=== PATIENT | female | born 1940 | race Caucasian/White ===

== ENCOUNTER → 2016-07-11 | Outpatient (CLI) | payer MEDICARE ==
[~2016-07-11] MED LIST: /PANT40TA PO; ACET500T PO; AMOX500T PO; ASPI325T PO; ATEN50TA2 PO; ATENPOW PO; COUM1TAB17 PO; LEVO100T4 PO; LISI5TAB PO; LISIPOW PO; MULTTAB PO; NITR0.4D6 SC; PERCOCET PO; SYNTHROID PO; TYLE325T5 PO; VITAMIN D PO; VYTO10TA41 PO
--- NOTE | 2016-07-11 12:42 | REP ---
Left ankle four views : There is no fracture or dislocation. Mineralization and joint spaces are normal. There are no calcifications or foreign bodies. Impression: Negative left ankle. Calcaneal plantar and Achilles spurs are incidentally noted. Signed by Miles العلي MD 07/11/2016 12:33 P
--- NOTE | 2016-07-11 12:43 | REP ---
Left foot four views: Comparison is 02/21/2010. The previous fracture of the base of the fifth digit metatarsal has healed in satisfactory position alignment. There is no acute fracture on the study today. Mineralization joint spaces are otherwise unremarkable and unchanged. Calcaneal plantar and Achilles spurs are incidentally noted. Impression: Essentially negative left foot except for a calcaneal spurs. Signed by Miles العلي MD 07/11/2016 12:35 P
== END ==
LOC: M WUC 11:45
PROVIDERS: ATTEND Physician Assistant
DX: S93.422A Sprain of deltoid ligament of left ankle, initial encounter (principal); S93.602A Unspecified sprain of left foot, initial encounter; M77.32 Calcaneal spur, left foot; Y92.9 Unspecified place or not applicable; Y93.9 Activity, unspecified; Y99.8 Other external cause status; X58.XXXA Exposure to other specified factors, initial encounter

== ENCOUNTER → 2016-08-29 | Outpatient (REF) | payer MEDICARE, OTHER | LOC: M LAB REF 13:10 | PROVIDERS: ATTEND Family Medicine | DX: N39.0 Urinary tract infection, site not specified (principal) ==

== ENCOUNTER → 2016-11-01 | Outpatient (REF) | payer MEDICARE, OTHER | LOC: M LAB REF 13:09 | PROVIDERS: ATTEND Nurse Practitioner Family | DX: N39.0 Urinary tract infection, site not specified (principal) ==

== ENCOUNTER 2017-10-11 05:49 | Day surgery (SDC) | payer MEDICARE ==
[2017-10-11] MEDS ORDERED: LR 1,000 ML IV ×4 (06:00→10:00)
[2017-10-11] MEDS ORDERED: MIDAZOLAM INJ 2 MG/2 ML VIAL (J2250) As Ordered ×2 (07:09)
[2017-10-11] MEDS ORDERED: fentaNYL 250 MCG/5 ML INJECTION (J3010) As Ordered ×2 (07:09)
[2017-10-11] MEDS ORDERED: ONDANSETRON 4MG/2ML VIAL (J2405) As Ordered ×2 (07:12)
[2017-10-11] MEDS ORDERED: ROCURONIUM BROMIDE 50 MG/5 ML VIAL As Ordered ×2 (07:12)
[2017-10-11] MEDS ORDERED: PROPOFOL 200 MG/20 ML VIAL As Ordered ×2 (07:12)
[2017-10-11] MEDS ORDERED: LIDOCAINE 2% INJ 100 MG/5 ML SDV (FOR ANES.) As Ordered ×2 (07:12)
[2017-10-11] MEDS ORDERED: dexameTHASONE 4 MG/ML 1ML VIAL (J1100) As Ordered ×4 (07:13)
[2017-10-11] MEDS ORDERED: ETOMIDATE INJ 20MG/10ML VIAL As Ordered ×2 (07:42)
[2017-10-11] MEDS ORDERED: GLYCOPYRROLATE INJ 0.2 MG/ML 2 ML VIAL As Ordered ×4 (09:00→09:01)
[2017-10-11] MEDS ORDERED: NEOSTIGMINE 10 MG/10 ML VIAL (J2710) As Ordered ×2 (09:00)
[2017-10-11] MEDS: BUPIVACAINE HCL 0.25% 30 ML VIAL As Ordered ×2 (09:21)
[2017-10-11] MEDS ORDERED: LABETALOL HCL 100 MG/20 ML VIAL As Ordered ×2 (09:32)
[2017-10-11] MEDS: PERCOCET 5MG/325MG TAB PO ×2 (09:58)
[2017-10-11] MEDS ORDERED: ONDANSETRON 4MG/2ML VIAL (J2405) IV ×2 (10:00)
[2017-10-11] MEDS ORDERED: fentaNYL 100 MCG/2 ML INJECTION (J3010) IV ×2 (10:00)
[2017-10-11] MEDS ORDERED: METOCLOPRAMIDE INJ 10MG/2ML VIAL (J2765) IV ×2 (10:00)
== END 2017-10-11 12:00 | disposition home or self-care (01) ==
LOC: M SDC 05:49
DX: K80.10 Calculus of gallbladder with chronic cholecystitis without obstruction (principal); I10 Essential (primary) hypertension; C18.9 Malignant neoplasm of colon, unspecified; K21.9 Gastro-esophageal reflux disease without esophagitis; E03.9 Hypothyroidism, unspecified; E78.00 Pure hypercholesterolemia, unspecified; I48.91 Unspecified atrial fibrillation; I25.2 Old myocardial infarction; R60.0 Localized edema; R29.898 Other symptoms and signs involving the musculoskeletal system; M12.9 Arthropathy, unspecified; F32.9 Major depressive disorder, single episode, unspecified; I25.119 Atherosclerotic heart disease of native coronary artery with unspecified angina pectoris; Z79.899 Other long term (current) drug therapy; Z79.82 Long term (current) use of aspirin; Z78.0 Asymptomatic menopausal state; Z92.21 Personal history of antineoplastic chemotherapy; Z96.641 Presence of right artificial hip joint; Z96.1 Presence of intraocular lens
CPT/HCPCS: 47562

== ENCOUNTER → 2018-01-23 | Outpatient (REF) | payer MEDICARE ==
[2018-01-23 18:09] LABS: LIPASE 233 U/L (73-393)
[2018-01-23 18:09] LABS: AMYLASE 55 U/L (25-115)
== END ==
LOC: M LAB REF 17:25
DX: R10.9 Unspecified abdominal pain (principal)
CPT/HCPCS: 82150

== ENCOUNTER 2018-01-30 05:53 | Day surgery (SDC) | payer MEDICARE ==
[2018-01-30] MEDS ORDERED: ACETAMINOPHEN 325 MG TAB PO (06:00)
[2018-01-30] MEDS: PHENYLEPHRINE 2.5% OPHTH SOL 2ML OD (06:33)
[2018-01-30] MEDS: CYCLOPENTOLATE 2% OPHTH SOLN 2ML BTL OD (06:33)
[2018-01-30] MEDS: LIDOCAINE 3.5 % 1ML OPHTH TOPICAL GEL OU (06:34)
[2018-01-30] MEDS: OFLOXACIN 0.3 % (OCUFLOX) OPTH SOL 5ML OD (06:34)
[2018-01-30] MEDS: TROPICAMIDE 1% OPHTH SOLN 2ML OD (06:34)
[2018-01-30] MEDS ORDERED: PHENYLEPHRINE HCL 10 % OPHTH. SOL 5ML OD (07:00)
[2018-01-30] MEDS ORDERED: BSS with VANC/TOB/EPI for EYE CASES IR (07:00)
[2018-01-30] MEDS ORDERED: MIDAZOLAM INJ 2 MG/2 ML VIAL (J2250) As Ordered (07:05)
[2018-01-30] MEDS ORDERED: fentaNYL 100 MCG/2 ML INJECTION (J3010) As Ordered (07:05)
[2018-01-30] MEDS: MOXIFLOXACIN IN BSS 0.25MG/0.25ML INTRACAMERAL INJ (OR EYE ONLY)(J2280) As Ordered (07:45)
[2018-01-30] MEDS: HEALON DUET PRO(HEALON 10MG/ML 0.55ML & HEALON ENDOCOAT 30MG/ML 0.85ML) As Ordered (07:45)
[2018-01-30] MEDS: TRIAMCINOLONE PRES FR 40 MG/ML 1ML(TRIESENCE)(OR EYE ONLY)(J3300 PER 1MG) As Ordered (07:45)
[2018-01-30] MEDS: LIDOCAINE 1% SDV 5 ML VIAL As Ordered (07:45)
[2018-01-30] MEDS: POVIDONE-IODINE 5% OPHTH PREP SOL 30ML As Ordered (07:45)
[2018-01-30] MEDS: LIDOCAINE 2% W/EPIN INJ 20ML **PRES FREE As Ordered (07:46)
[2018-01-30] MEDS: ACETYLCHOLINE OPHTH SOLN 1% 2ML (MIOCHOL-E) As Ordered (07:46)
[2018-01-30] MEDS ORDERED: TRIMETHOBENZAMIDE 300 MG CAP PO (08:00)
[2018-01-30] MEDS: AcetaZOLAMIDE 500 MG ER CAP PO (08:03)
== END 2018-01-30 08:35 | disposition home or self-care (01) ==
LOC: M SDC 05:53
DX: H25.9 Unspecified age-related cataract (principal); I10 Essential (primary) hypertension; I25.2 Old myocardial infarction; I25.10 Atherosclerotic heart disease of native coronary artery without angina pectoris; Z98.61 Coronary angioplasty status; E78.5 Hyperlipidemia, unspecified; E03.9 Hypothyroidism, unspecified; Z79.899 Other long term (current) drug therapy; Z85.038 Personal history of other malignant neoplasm of large intestine
CPT/HCPCS: 66984

== ENCOUNTER → 2018-09-26 | Outpatient (REF) | payer MEDICARE ==
[~2018-09-26] MED LIST changes: -/PANT40TA PO; +ASPI-255 PO; +LEVO88TA3; +MULTCAP PO; +NITR0.4S14 SL; +PANT40TA3 PO; +PROT1TAB2 PO; +SIMV40TA2 PO; +VITA100067 PO
[2018-09-26 18:55] LABS: AMYLASE 54 U/L (25-115); LIPASE 250 U/L (73-393)
== END ==
LOC: M LAB REF 16:49
PROVIDERS: ATTEND Family Medicine
DX: R10.819 Abdominal tenderness, unspecified site (principal)

== ENCOUNTER → 2019-08-18 | Outpatient (CLI) | payer MEDICARE ==
[~2019-08-18] MED LIST changes: +ACET-907 PO; +ECOT81TA5 PO; +LEVO-86 PO; -LEVO88TA3; +LEVO88TA3 PO; +LISI2.5T2 PO; -SIMV40TA2 PO; +SIMV40TA20 PO; +VITAD1000T PO
== END ==
LOC: M LABSMTC 10:42
PROVIDERS: ATTEND Anesthesiology
DX: Z01.818 Encounter for other preprocedural examination (principal); Z11.59 Encounter for screening for other viral diseases
CPT/HCPCS: C9803; U0003

== ENCOUNTER 2019-08-21 06:42 | Day surgery (SDC) | payer MEDICARE ==
[~2019-08-21] VITALS: Ht 165.1 cm; Wt 84.3 kg
[2019-08-21] MEDS ORDERED: NS 1,000 ML IV ONE (07:00)
[2019-08-21] MEDS ORDERED: propofoL 200 MG/20 ML VIAL As Ordered ONE ×2 (07:07→07:14)
[2019-08-21] MEDS ORDERED: LIDOCAINE 2% 100MG/5ML SDV (FOR ANES.) As Ordered ONE ×2 (07:07→07:14)
--- NOTE | 2019-08-21 07:56 | ROOR ---
Patient Name: Shilpi Farrell Procedure Date: 08/21/2019 7:27 AM Date of : 1940 Age: 79 Room: [facility] Gender: Female Note Status: Finalized Procedure: Colonoscopy Indications: High risk colon cancer surveillance: Personal history of colon cancer, Last colonoscopy: October 2015, Patient had a left hemicolectomy for cancer in 2006 Providers: Pete Whitley MD Referring MD: Woody Colorado MD Requesting Provider: Medicines: Monitored Anesthesia Care Complications: No immediate complications. Procedure: Pre-Anesthesia Assessment: - Prior to the procedure, a History and Physical was performed, and patient medications and allergies were reviewed. The patient is competent. The risks and benefits of the procedure and the sedation options and risks were discussed with the patient. All questions were answered and informed consent was obtained. Patient identification and proposed procedure were verified by the physician, the nurse and the operations dispatcher in the procedure room. Mental Status Examination: alert and oriented. Airway Examination: normal oropharyngeal airway and neck mobility. Prophylactic Antibiotics: The patient does not require prophylactic antibiotics. Prior Anticoagulants: The patient has taken no previous anticoagulant or antiplatelet agents. ASA Grade Assessment: III - A patient with severe systemic disease. After reviewing the risks and benefits, the patient was deemed in satisfactory condition to undergo the procedure. The anesthesia plan was to use monitored anesthesia care (MAC). Immediately prior to administration of medications, the patient was re-assessed for adequacy to receive sedatives. The heart rate, respiratory rate, oxygen saturations, blood pressure, adequacy of pulmonary ventilation, and response to care were monitored throughout the procedure. The physical status of the patient was re-assessed after the procedure. The Colonoscope was introduced through the anus and advanced to the cecum, identified by appendiceal orifice and ileocecal valve. The colonoscopy was performed without difficulty. The patient tolerated the procedure well. The quality of the bowel preparation was excellent. Findings: The perianal and digital rectal examinations were normal. A 3 mm polyp was found in the proximal ascending colon. The polyp was sessile. The polyp was removed with a jumbo cold forceps. Resection and retrieval were complete. The pathology specimen was placed into Bottle Number 1. There was evidence of a prior functional end-to-end colo-colonic anastomosis in the proximal descending colon. This was patent and was characterized by healthy appearing mucosa. Impression: - One 3 mm polyp in the proximal ascending colon, removed with a jumbo cold forceps. Resected and retrieved. - Patent functional end-to-end colo-colonic anastomosis, characterized by healthy appearing mucosa. Recommendation: - Discharge patient to home. - Resume previous diet. - Continue present medications. - Await pathology results. - Repeat colonoscopy in 3 - 5 years for surveillance. Pete Whitley MD Pete Whitley MD 08/21/2019 7:56:05 AM Electronically signed by Pete Whitley MD Number of Addenda: 0 Note Initiated On: 08/21/2019 7:27 AM Estimated Blood Loss: Estimated blood loss: none.
[2019-08-21 08:15] VITALS: BP 134/75
== END 2019-08-21 08:46 | disposition home or self-care (01) ==
LOC: M OPP 06:42
PROVIDERS: ATTEND Surgery
DX: Z12.11 Encounter for screening for malignant neoplasm of colon (principal); Z85.038 Personal history of other malignant neoplasm of large intestine; Z80.0 Family history of malignant neoplasm of digestive organs; D12.2 Benign neoplasm of ascending colon; E03.9 Hypothyroidism, unspecified; I25.2 Old myocardial infarction; Z98.0 Intestinal bypass and anastomosis status; Z79.82 Long term (current) use of aspirin; Z79.899 Other long term (current) drug therapy

== ENCOUNTER → 2019-09-22 | Outpatient (CLI) | payer MEDICARE ==
--- NOTE | 2019-09-22 16:19 | REP ---
ULTRASOUND RIGHT BREAST: Real-time sonographic evaluation of the right breast performed. Patient reports right axillary soreness. There is a morphologically normal appearing lymph node in the right axilla with an echogenic fatty hilum. It measures 1.7 x 0.6 x 1.4 cm. Reportedly there is a palpable lump at 12-o'clock position 10 cm from the nipple. At that location, a small hypoechoic area is seen with distal shadowing. This measures approximately 3 mm. This is probably benign. IMPRESSION: ACR3 probably benign. Right axillary lymph node appears morphologically normal in appearance with a normal short axis dimension. At 12-o'clock position, a small 3 mm hypoechoic focus demonstrates distal acoustic shadowing. This is probably benign. Recommend other 6-month followup ultrasound with mammographic correlation, or ultrasound-guided biopsy.
== END ==
LOC: M WHC 13:11
PROVIDERS: ATTEND Surgery
DX: N63.12 Unspecified lump in the right breast, upper inner quadrant (principal); R59.9 Enlarged lymph nodes, unspecified; Z79.82 Long term (current) use of aspirin; Z79.899 Other long term (current) drug therapy

== ENCOUNTER → 2019-09-24 | Outpatient (CLI) | payer MEDICARE ==
[~2019-09-24] MED LIST changes: +ANAS1TAB2 PO; +D31000TA2 PO; +PANT40TA29 PO; -PANT40TA3 PO; +ULTR50TA8 PO; +VITA100054 PO; -VITAD1000T PO
--- NOTE | 2019-09-24 13:59 | REP ---
ULTRASOUND GUIDANCE FOR TWO RIGHT BREAST BIOPSIES: Real-time sonographic evaluation and ultrasound guidance provided for Dr. Gates for an ultrasound guided biopsy of a nodule at 4 -o'clock position right breast. The nodule is seen on the sonographic images and a biopsy needle is seen within the nodule. Sonographic guidance is also provided biopsy of a hypoechoic nodule at 12 -o'clock position approximately 10 cm from the nipple.
--- NOTE | 2019-09-24 14:04 | REP ---
POST BIOPSY MAMMOGRAM RIGHT BREAST: Postbiopsy mammogram right breast performed following ultrasound-guided biopsy of two separate areas in the right breast. A biopsy clip is seen at the previously identified nodule in the lower inner right breast, originally seen by mammography at [facility] 08/05/2019. Metallic clip is seen at the 12 -o'clock region at the site of a second ultrasound biopsy performed today. There was no mammographic abnormality at that location.
[2019-09-24 17:31] VITALS: BP 158/82
--- NOTE | 2019-10-05 15:29 | ROOPDOC ---
[facility] Report Of Operation Report of Operation DATE OF PROCEDURE: 09/24/19 PREPROCEDURE DIAGNOSES: Right breast mass at 4:00 and 12:00 POSTPROCEDURE DIAGNOSES: Right breast mass at 4:00 and 12:00. PROCEDURE: Ultrasound-guided biopsy of the right breast mass at 4:00 and 12:00 with clip placement at both biopsy sites SURGEON: Jim Cueto ANESTHESIA: Local. ESTIMATED BLOOD LOSS: Approximately 1 mL. COMPLICATIONS: none REMARKS: Post-biopsy mammogram of the right breast was obtained and showed clips in expected position. Shape 4 clip was at the 4:00 mass location. Postprocedural dressing was placed. DESCRIPTION OF PROCEDURE: Lidocaine 1% LOT [id number] Expiration 07/2022 Sodium Bicarbonate 8.4% LOT 06 [id number] EV Expiration 08/2020 4:00 BIOPSY SITE Hydromark clip LOT [id number] Expiration 04/2022 SHAPE 4 Bx device: BARD [id number] x10 cm LOT HU EQ [id number] Expiration 04/2022 12:00 BIOPSY SITE Hydromark clip LOT [id number] Expiration 03/2022 SHAPE 3 Bx device: BARD [id number] x10 cm LOT HU EQ 0691 Expiration 04/2022 Informed consent was obtained. The most common risk and possible complications including bleeding, hematoma, bruising, infection, injury to surrounding structures were explained to the patient and she expressed understanding. Patient was placed on the bed in the supine position. Appropriate time out was done stating patients name, date of , and the procedure to be performed. The right breast was prepped and draped in the usual fashion. The ultrasound was used to confirm the location of the lesions in the right breast at 4:00 4CFN and at 12:00 7CFN. Procedure was started with 4:00 4 cm from the nipple lesion. Plain Lidocaine 1% and 8.4% sodium bicarbonate 10:1 mix was used to anesthetize the skin, the biopsy site and tissues along the anticipated biopsy tract. Small skin incision was made with blade number 11. BARD Marquee 14G cannula with introducer ([id number]) was inserted through the incision and advanced under the ultrasound guidance to position immediately adjacent to the lesion. Next, the introducer was removed and BARD Marquee 14G biopsy device was places in the cannula. Pre- biopsy imaging, and post-biopsy imaging were captured. Five good core biopsies were taken at various levels of the lesion. Specimen was placed in formaldehyde, labeled with appropriate biopsy site and patients name, and sent to pathology for evaluation. Next, the biopsy device was withdrawn and a clip introducer was inserted into the biopsy site via the cannula. The SHAPE 4 Hydromark clip was deployed under sonographic guidance. Post-clip placement image was captured. Manual pressure over the biopsy cavity and tract was held after the clip introducer was withdrawn. No bleeding was noted upon removal of the pressure. Next, our attention was shifted toward 12:00 7 cm from the nipple lesion. Plain Lidocaine 1% and 8.4% sodium bicarbonate 10:1 mix was used to anesthetize the skin, the biopsy site and tissues along the anticipated biopsy tract. Small skin incision was made with blade number 11. BARD Marquee 14G cannula with introducer ([id number]) was inserted through the incision and advanced under the ultrasound guidance to position immediately adjacent to the lesion. Next, the introducer was removed and BARD Marquee 14G biopsy device was places in the cannula. Pre-biopsy imaging, and post-biopsy imaging were captured. Five good core biopsies were taken at various levels of the lesion. Specimen was placed in formaldehyde, labeled with appropriate biopsy site and patients name, and sent to pathology for evaluation. Next, the biopsy device was withdrawn and a clip introducer was inserted into the biopsy site via the cannula. The SHAPE 3 Hydromark clip was deployed under sonographic guidance. Post-clip placement image was captured. Manual pressure over the biopsy cavity and tract was held after the clip intro ducer was withdrawn. No bleeding was noted upon removal of the pressure. Post-biopsy mammogram of the right breast was obtained and showed clips in expected position. Shape 4 clip was at the 4:00 mass location. Postprocedural dressing was placed. Patient tolerated procedure well. Discharge instructions were discussed with the patient and she expressed understanding. JIM CUETO DO Oct 05, 2019 15:29
== END ==
LOC: M WHCPRO 08:59
PROVIDERS: ATTEND Surgery
DX: C50.311 Malignant neoplasm of lower-inner quadrant of right female breast (principal); N63.14 Unspecified lump in the right breast, lower inner quadrant; N63.12 Unspecified lump in the right breast, upper inner quadrant

== ENCOUNTER → 2019-09-29 | Outpatient (CLI) | payer MEDICARE | LOC: M PLALAB 12:55 | PROVIDERS: ATTEND Surgery | DX: Z13.79 Encounter for other screening for genetic and chromosomal anomalies (principal) ==

== ENCOUNTER → 2019-09-30 | Outpatient (REF) | payer MEDICARE ==
[2019-09-30 17:18] LABS: CALCIUM LEVEL 8.6 MG/DL (8.8-10.2); CREATININE FOR GFR 1.19 MG/DL (0.55-1.30); GLOMERULAR FILTRATION RATE 46.5 (>32); POTASSIUM SERUM 4.9 MEQ/L (3.5-5.1)
== END ==
LOC: M PLALAB 13:24
PROVIDERS: ATTEND Surgery
DX: C50.311 Malignant neoplasm of lower-inner quadrant of right female breast (principal)

== ENCOUNTER → 2019-10-22 | Outpatient (REF) | payer MEDICARE ==
[2019-12-06 12:15] LABS: CALCIUM LEVEL 9.1 MG/DL (8.8-10.2); CREATININE FOR GFR 1.19 MG/DL (0.55-1.30); GLOMERULAR FILTRATION RATE 46.5 (>32); POTASSIUM SERUM 4.9 MEQ/L (3.5-5.1)
== END ==
LOC: M WHC 10:32 → M PLALAB 10:32
PROVIDERS: ATTEND Surgery
DX: C50.911 Malignant neoplasm of unspecified site of right female breast (principal)

== ENCOUNTER → 2019-11-04 | Outpatient (CLI) | payer MEDICARE ==
[~2019-11-04] MED LIST changes: +ISOVUE-370 76% 100ML VIAL As Ordered ONE
== END ==
LOC: M RAD 12:05
PROVIDERS: ATTEND Internal Medicine Cardiovascular Disease
DX: I71.00 Dissection of unspecified site of aorta (principal); I25.10 Atherosclerotic heart disease of native coronary artery without angina pectoris; N63.15 Unspecified lump in the right breast, overlapping quadrants; K86.2 Cyst of pancreas; Z95.1 Presence of aortocoronary bypass graft
CPT/HCPCS: 71275; Q9967

== ENCOUNTER → 2019-11-06 | Outpatient (CLI) | payer MEDICARE ==
[~2019-11-06] MED LIST changes: -ISOVUE-370 76% 100ML VIAL As Ordered ONE
== END ==
LOC: M LABSMTC 11:02
PROVIDERS: ATTEND Anesthesiology
DX: Z01.812 Encounter for preprocedural laboratory examination (principal); Z20.828 Contact with and (suspected) exposure to other viral communicable diseases

== ENCOUNTER 2019-11-11 07:24 | Day surgery (SDC) | payer MEDICARE ==
[~2019-11-11] VITALS: Ht 152.4 cm; Wt 89.5 kg
[~2019-11-11 07:24] MED LIST changes: -ANAS1TAB2 PO; -ULTR50TA8 PO
[2019-11-11] MEDS ORDERED: ONDANSETRON 4MG/2ML VIAL As Ordered ONE ×2 (08:09→16:42)
[2019-11-11] MEDS ORDERED: ROCURONIUM BROMIDE 50 MG/5 ML VIAL As Ordered ONE (08:09)
[2019-11-11] MEDS ORDERED: LIDOCAINE 2% 100MG/5ML SDV (FOR ANES.) As Ordered ONE (08:09)
[2019-11-11] MEDS ORDERED: dexameTHASONE 4 MG/ML 1ML VIAL (J1100 PER 1MG) As Ordered ONE (08:09)
[2019-11-11] MEDS ORDERED: ACETAMINOPHEN 1000MG 100ML IV BTL (OFIRMEV) (J0131 PER 10MG) As Ordered ONE (08:09)
[2019-11-11] MEDS ORDERED: propofoL 200 MG/20 ML VIAL As Ordered ONE (08:09)
[2019-11-11] MEDS ORDERED: fentaNYL 250 MCG/5 ML INJECTION (J3010) As Ordered ONE (08:28)
[2019-11-11] MEDS ORDERED: MIDAZOLAM INJ 2MG/2ML VIAL (J2250 PER 1MG) As Ordered ONE (08:29)
[2019-11-11] MEDS ORDERED: fentaNYL 100 MCG/2 ML INJECTION (J3010) As Ordered ONE ×2 (09:00→13:38)
[2019-11-11] MEDS ORDERED: ceFAZolin 2 GM/D5W 50 ML IV BAG (J0690 PER 500MG) As Ordered ONE ×2 (09:18→15:07)
[2019-11-11] MEDS ORDERED: HEPARIN SOD (PORCINE) 5000UNITS/ML 1ML VIAL/SYRINGE As Ordered ONE (09:20)
[2019-11-11] MEDS ORDERED: ceFAZolin SOD 2 GM in IV 1 EA IV ONE (09:45)
[2019-11-11] MEDS ORDERED: NS 1,000 ML IV SCH (09:45)
[2019-11-11] MEDS ORDERED: HEPARIN SOD (PORCINE) 5000UNITS/ML 1ML VIAL/SYRINGE SQ ONE (09:45)
[2019-11-11] MEDS ORDERED: BUPIVACAINE HCL 0.25% 30ML VIAL As Ordered ONE (09:46)
[2019-11-11] MEDS ORDERED: LIDOCAINE 1% SDV 30ML VIAL As Ordered ONE (09:46)
[2019-11-11] MEDS ORDERED: SUCCINYLCHOLINE 100 MG/5 ML SYRINGE (J0330) As Ordered ONE (09:47)
[2019-11-11] MEDS ORDERED: LABETALOL 100MG/20ML VIAL As Ordered ONE (10:51)
[2019-11-11] MEDS ORDERED: ePHEDrine SULFATE 25 MG/5 ML(5MG/ML) SYRINGE As Ordered ONE (11:15)
[2019-11-11] MEDS ORDERED: LACRILUBE (AKWA TEARS) OPHTH OINT 3.5 GM As Ordered ONE (11:42)
[2019-11-11] MEDS ORDERED: ULTR50TA8 PO (16:26)
[2019-11-11] MEDS ORDERED: oxyCODONE 5MG TAB PO PRN ×2 (17:00→22:00)
[2019-11-11] MEDS ORDERED: ONDANSETRON 4MG/2ML VIAL IV PRN ×2 (17:00→22:00)
[2019-11-11] MEDS ORDERED: fentaNYL 100 MCG/2 ML INJECTION (J3010) IV PRN ×2 (17:00→22:00)
[2019-11-11] MEDS ORDERED: HYDROMORPHONE HCL 0.5 MG/ 0.5 ML SYRINGE (J1170 PER 1) IV PRN ×2 (17:00→22:00)
[2019-11-11] MEDS ORDERED: LR 1,000 ML IV SCH ×2 (17:00→22:00)
[2019-11-11] MEDS ORDERED: HYDROMORPHONE HCL 0.5 MG/ 0.5 ML SYRINGE (J1170 PER 1) As Ordered ONE (17:57)
--- NOTE | 2019-11-11 18:16 | HPEPDOC ---
[facility] Medical History & Physical Date of Admission Nov 11, 2019 Date of Service: Nov 11, 2019 Attending Physician: TRACY MANUEL MD History and Physical ATTENDING: Dr. Tracy Manuel Surgeon: Dr. Gates CHIEF COMPLAINT: High blood pressure HISTORY OF PRESENT ILLNESS: 79 y/o F with PMHx CAD s/p CABGx5 in 2003, Colon ca s/p resection 2006, HTN, GERD who presents for lumpectomy and sentinel node dissection for concern of suspicious breast lesion. Pt seen post op mildly hypertensive [id number]. Pt did not take her BP meds today. Pt denies SOB/palpitations. No N/V/abd pain. Overall feels ok. We have been asked to keep pt overnight and monitor given prolonged OR time and cardiac history. PAST MEDICAL HISTORY: As per HPI PAST SURGICAL HISTORY: CABG, Colectomy for colon ca, hip surg, right eye surg SOCIAL HISTORY: Denies tobacco, alcohol use. FAMILY HISTORY: Non contributory ALLERGIES: Please see below. REVIEW OF SYSTEMS: HEENT: Denies sore throat/headache CARDIOVASCULAR: Denies palpitations RESPIRATORY: Denies shortness of breath/cough GASTROINTESTINAL: denies nausea/vomiting GENITOURINARY: Denies dysuria/urinary urgency. MUSCULOSKELETAL: Denies myalgias/arthralgias NEUROLOGICAL: Denies any focal weakness HOME MEDICATIONS: Please see below. PHYSICAL EXAMINATION: Vitals: (see below) General: No acute distress, laying comfortably in bed. HEENT: Moist mucous membranes. Neck: No JVD or lymphadenopathy Cardiac: RRR, No murmurs. Chest wall with JENELLE bandage Pulm: Clear to auscultation b/l. No wheezing, rhonchi Abd: NT/ND + BS Ext: No edema or cyanosis. Distal pulses intact LABORATORY DATA: See below. ASSESSMENT/PLAN: 1. POD #0 s/p lumpectomy x2 with sentinel lymph node biopsy. - management per Dr. Gates 2. HTN - uncontrolled. Restart Lisinopril. hydralazine IV PRN 3. H/o CAD s/p cabg - restart home meds, except ASA until cleared by surg 4. H/o colon ca s/p resection 5. H/o gerd on ppi DVT Prophy: SCDs Pt expected to be hospitalized for <2midnights for the monitoring of the above. Vital Signs Vital Signs Date Time Temp Pulse Resp B/P (MAP) Pulse Ox O2 Delivery O2 Flow Rate FiO2 11/11/19 18:01 20 11/11/19 17:40 97.7 65 165/73 (103) 97 Room Air 11/11/19 16:25 2 Home Medications Scheduled Aspirin (Ecotrin) 81 Mg Tablet.dr, 81 MG PO DAILY Cholecalciferol (Vitamin D3) (Vitamin D3) 25 Mcg Capsule, 25 MCG PO DAILY Levothyroxine Sodium (Levothyroxine Sodium) 88 Mcg Tab, 88 MCG PO ASDIRECTED SUNDAY, SUN, SUNDAY, SUN, SUN Levothyroxine Sodium (Levo-T) 75 Mcg Tablet, 75 MCG PO 2XW SUNDAY AND SUNDAY Lisinopril (Lisinopril) 2.5 Mg Tablet, 2.5 MG PO DAILY Multivitamin (Multivitamins) 1 Cap Cap, 1 CAP PO DAILY Nitroglycerin (Nitroglycerin) 0.4 Mg Sub, 0.4 MG SL ASDIRECTED for chest pain 1st sign of attack; may repeat every 5 mins; if pain persists after 3 in 15 min, medical attention is recommended Pantoprazole Sodium (Pantoprazole Sodium) 40 Mg Tab, 40 MG PO DAILY Simvastatin (Simvastatin) 40 Mg Tab, 40 MG PO DAILY Scheduled PRN Acetaminophen (Tylenol) 325 Mg Tablet, 650 MG PO Q4-6HP PRN for PAIN OR FEVER Tramadol HCl (Ultram) 50 Mg Tablet, 50 MG PO every 6 hours PRN for pain Allergies Coded Allergies: No Known Allergies (Unverified , 01/29/18) A-FIB/CHADSVASC A-FIB History Current/History of A-Fib/PAF?: No TRACY MANUEL MD Nov 11, 2019 18:16
[2019-11-11] MEDS ORDERED: **hydrALAZINE** 10 MG TAB PO PRN (18:30)
[2019-11-11 21:15] VITALS: BP 136/80
--- NOTE | 2019-11-11 21:44 | ROOPDOC ---
[facility] Report Of Operation Report of Operation DATE OF PROCEDURE: 11/11/19 PREPROCEDURE DIAGNOSES: Right breast cancer and right breast suspicious lesion POSTPROCEDURE DIAGNOSES: same PROCEDURE: Right breast lumpectomy x 2 with intraop wire placement x2 and right sentinel lymph node biopsy SURGEON: Jim Baez [employer] ASSEMBLER: ANESTHESIA: general ESTIMATED BLOOD LOSS: Approximately 25 mL. COMPLICATIONS: none REMARKS: clip was identified during dissection of 12:00 lesion and removed from the tissue to avoid misplacement, The clip is present in the 4:00 lumpectomy specimens. Both specimens contain wires DESCRIPTION OF PROCEDURE: INDICATIONS: Ms. Farrell is an 79-year-old woman who was found to have a suspicious right breast mass located at 4:00 on screening mammogram. This was evaluated with US and sonographic correlate was found and biopsy was recommended. On clinical breast exam there was another area of palpable lesion at 12:00. This lesion was evaluated with focal US of this lesion and category BIRADS 3 was assigned to this study and either biopsy or image follow up was recommended. Patient decided that she would like to have biopsy of both lesions. 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 US guided biopsy of the 12:00 lesion came back as fat necrosis. MRI of the breast was done and showed abnormal contrast enhancement at the site of known cancer and some suspicious enhancement at the site of 12:00 biopsy. Malignancy could not be ruled out per radiology report. We have discussed various treatment options and patient decided that she would want to have both lesions removed. She opted for breast conservative surgery with sentinel lymph node biopsy on the right. She was medically cleared for surgery by her primary care doctor and by the cardiology since patient has a hx of open heart surgery. Risks and possible complications of surgical procedure including bleeding, infection and injury to surrounding structures were explained to the patient and she wished to proceed. Consent was signed. My initials were placed on the operative site. Subcutaneous injection of 5000 units of heparin was done in Preop. The injection of radioactive tracer was done in radiology department preoperatively. Lymphoscintigraphy imaging was reviewed in preop. DETAILS: Patient was taken to the operating room and placed on the operating room table. A sign in was called stating patients name, date of and the procedure to be done. Preoperative antibiotics were infused. Smooth induction of general anesthesia was done. Patients hands were extended on arm rests. Care was taken not to over extend the arms. Procedure was started with right breast intraop wire localization of 12:00 lesion and 4:00 lesion. Appropriate time out was done and patients name, date of , and the procedure to be done were confirmed. Right breast was cleaned by me. Intraoperative ultrasound was used to confirm location of the Hydromark clip and 12:00 and at 4:00. Location of the clip was marked on the skin as well at both locations. We started with wire placement at the 12:00 lesion. 21 G Kopans Breast Lesion Localization Needle was used to place 25 cm wire through the clip and the end and the wire was passed a centimeter deep. The images were captured confirming adequate placement of the localizing wire. Next, we proceeded with wire placement at 4:00. 21 G K[place] Breast Lesion Localization Needle was used to place 25 cm wire through the lesion. The clip was identified immediately next to the lesion. The images were captured confirming adequate placement of the localizing wire. Public Welfare Director assisted with the wire placement. Next, patients right breast and axilla were prepped and draped in the usual fashion. Care was taken not to displace the wire. Appropriate time out was done again prior second part of the procedure. Patients name, date of , and the procedure to be done were confirmed. Procedure was started with sentinel lymph node biopsy. Neoprobe was used to locate area of maximum intensity of the signal. Local anesthetic using 1% lidocaine and 0.25 % Marcaine 50/50 mix was injected. An incision was made with scalpel number 15 at the inferior aspect of axillary hair line in the right axilla where the maximum signal was identified. The sharp and blunt dissection was continued through the subcutaneous adipose tissue. Clavipectoral fascia was opened. Neoprobe was used to guide the dissection. First sentinel lymph node was identified and excised. The ex-vivo 10 second count was 5001. Second sentinel lymph node was next to the first node. This was also excised. The ex- vivo 10 second count was 17. The third sentinel lymph node was identified and excised. The ex-vivo 10 second count was 3120. The specimens were labeled with patients name and sent to pathology. No additional lymph nodes with high radioactive signal were identified. The 10 second count of the background was 81. Adequate hemostasis was assured. Additional local anesthetic was injected into surrounding tissues. At this time, the axillary incision was used to access the lesion locates at 12:00. The tissue flaps were raised from the incision site toward the 12:00 Hydromark clip. The previously placed guide wire was carefully pulled into the wound. Hydromark clip was identified with intraoperative US using hockey stick probe. Dissection was carried toward the Hydromark along the wire. Hydromark clip was noted to be visible during tissue dissection and removed to avoid losin g the clip. This was later imaged with the specimen. Black stitch was placed into the specimen at the site where clip was present. Surrounding tissue along the wire and the previously identified clip site was excised. The specimen was carefully removed from the breast keeping its proper orientation and moved to the back table where margins were marked with the surgical inking kit following the standard colors recommendations. Specimen was then placed on the grid and placed in [employer] Specimen Imaging System. The image revealed the wire. The Hydromark clip previously identified in the tissue was placed next to the specimen. The specimen was labeled with patients name and right 12:00 lumpectomy and sent to pathology. Axillary and breast cavities were was irrigated. Breast space was approximated with 2-0 Vicryl. Clavipectoral fascia was closed with 3-0 Vicryl interrupted suture. Dermal layer was closed at the end of the case with 3-0 Monocryl and skin was closed with 4-0 Monocryl. Surgical glue was applied to the incision at the end of the procedure. Next, our attention was turned toward the right 4:00 cancer site. Local anest hetic using 1% lidocaine and 0.25 % Marcaine 50/50 mix was injected at the site of planned periareolar incision. The incision was made with the scalpel. Subcutaneous skin flaps were raised and the guide wire was carefully pulled into the wound. Dissection was carries along the wire until the previously marked on the skin area of target lesion location was encountered. At this point, wider excision of the tissue surrounding the wire was done. The Hydromark clip was identified in the tissue with intraoperative hockey stick ultrasound probe. Palpation of the mass was guiding the dissection. The lumpectomy specimen was carefully removed from the breast keeping its proper orientation and moved to the back table where margins were marked with the surgical inking kit following the standard colors recommendations. Specimen was then placed on the grid and placed in [employer] [facility]imen [facility] System. The image revealed the wire inside the mass and the Hydromark in the specimen. The specimen was labeled with patients name and right 4:00 lumpectomy and sent to pathology. Next, six additional margins were taken: deep, inferior, superior, medial, anterior and lateral. All new margins, defined as margin farthest away from lumpectomy cavity, were marked with black ink. Each margin was sent as a separate specimen with appropriate labeling. Wound was thoroughly irrigated. Adequate hemostasis was assured. Additional local anesthetic was injected into surrounding tissues. Clips were placed to ryan the cavity. space was approximated with 2-0 Vicryl. The dermis was closed with 3-0 Monocryl and skin was closed with 4-0 Monocryl. Surgical glue was placed over the incision. Patient emerged from the anesthesia without any problems. Fluffs were placed over the operative site and patients chest was wrapped snuggly in the JENELLE wrap. Sponge and instrument counts were done and were correct. Patient tolerated procedure well and was taken to recovery unit in stable condition. JIM CUETO DO Nov 11, 2019 21:44
[2019-11-11] MEDS ORDERED: ACETAMINOPHEN 500 MG TAB PO PRN ×2 (22:15)
[2019-11-11] MEDS ORDERED: traMADol 50 MG TAB PO PRN (22:15)
[2019-11-11 23:18] LABS: HEMATOCRIT 33.8 % (36.0-47.0); HEMOGLOBIN 11.4 g/dl (12.0-15.5); MEAN CORPUSCULAR HEMOGLOBIN 33.9 pg (27.0-33.0); MEAN CORPUSCULAR HGB CONC 33.7 g/dl (32.0-36.5); MEAN CORPUSCULAR VOLUME 100.6 fl (80.0-96.0); PLATELET COUNT, AUTOMATED 132 10^3/uL (150-450); RED BLOOD COUNT 3.36 10^6/uL (4.00-5.40); WHITE BLOOD COUNT 7.8 10^3/uL (4.0-10.0)
[2019-11-11 23:29] LABS: CALCIUM LEVEL 8.8 MG/DL (8.8-10.2); CREATININE FOR GFR 1.33 MG/DL (0.55-1.30); GLOMERULAR FILTRATION RATE 40.9 (>32); POTASSIUM SERUM 4.4 MEQ/L (3.5-5.1)
[2019-11-12] MEDS: LISINOPRIL *2.5 MG* TAB PO SCH ×2 (00:38→08:33)
[2019-11-12 02:00] VITALS: BP 131/82
[2019-11-12 06:00] VITALS: BP 136/70
[2019-11-12 07:06] LABS: HEMATOCRIT 31.7 % (36.0-47.0); HEMOGLOBIN 10.5 g/dl (12.0-15.5); MEAN CORPUSCULAR HEMOGLOBIN 33.2 pg (27.0-33.0); MEAN CORPUSCULAR HGB CONC 33.1 g/dl (32.0-36.5); MEAN CORPUSCULAR VOLUME 100.3 fl (80.0-96.0); PLATELET COUNT, AUTOMATED 128 10^3/uL (150-450); RED BLOOD COUNT 3.16 10^6/uL (4.00-5.40); WHITE BLOOD COUNT 8.6 10^3/uL (4.0-10.0)
[2019-11-12 07:17] LABS: CALCIUM LEVEL 8.8 MG/DL (8.8-10.2); CREATININE FOR GFR 1.17 MG/DL (0.55-1.30); GLOMERULAR FILTRATION RATE 47.4 (>32); POTASSIUM SERUM 4.1 MEQ/L (3.5-5.1)
[2019-11-12 08:33] VITALS: BP 152/74
[2019-11-12 10:00] VITALS: BP 135/76
--- NOTE | 2019-11-12 12:03 | DS.PDOC ---
Discharge Summary General Date of Admission 11/11/19 Date of Discharge 11/12/19 Primary Care Physician: PEGGY WATSON M.D. Attending Physician: JIM CUETO DO Discharge Summary PROCEDURES PERFORMED DURING STAY: None. ADMITTING/DISCHARGE DIAGNOSES: 1. POD #1 s/p lumpectomy x2 with sentinel lymph node biopsy. - management per Dr. Cueto 2. HTN - controlled now 3. H/o CAD s/p cabg 4. H/o colon ca s/p resection 5. H/o gerd on ppi COMPLICATIONS/CHIEF COMPLAINT: Post lumpectomy HISTORY OF PRESENT ILLNESS/HOSPITAL COURSE: 79 y/o F with PMHx CAD s/p CABGx5 in 2003, Colon ca s/p resection 2006, HTN, GERD who presents for lumpectomy and sentinel node dissection for concern of suspicious breast lesion. Pt seen post op mildly hypertensive [id number]. Pt did not take her BP meds today. Pt denies SOB/palpitations. No N/V/abd pain. Overall feels ok. We have been asked to keep pt overnight and monitor given prolonged OR time and cardiac history. Pt remained hemodynamically stable. No acute changes overnight. BP stable. Cleared for d/c by Dr. Cueto. Restart ASA when ok with Dr. Cueto. DISCHARGE MEDICATIONS: Please see below. ALLERGIES: Please see below. PHYSICAL EXAMINATION ON DISCHARGE: Vitals: (see below) General: No acute distress, laying comfortably in bed. HEENT: Moist mucous membranes. Neck: No JVD or lymphadenopathy Cardiac: RRR, No murmurs. JENELLE bandage in place. Pulm: Clear to auscultation b/l. No wheezing, rhonchi Abd: NT/ND + BS Ext: No edema or cyanosis. Distal pulses intact. LABORATORY DATA: Please see below. PROGNOSIS: Fair ACTIVITY: As tolerated. DIET: Cardiac diet DISCHARGE PLAN/DISPOSITION: Home DISCHARGE INSTRUCTIONS: 1. F/u with PCP and Cardiology in 1-2 weeks. F/u with Dr. Cueto as instructed; f/u with oncologist/surgeon for pathology results. DISCHARGE CONDITION: Stable. TIME SPENT ON DISCHARGE: 25 minutes. Vital Signs/I&Os Vital Signs Date Time Temp Pulse Resp B/P (MAP) Pulse Ox O2 Delivery O2 Flow Rate FiO2 11/12/19 10:00 98.2 68 17 135/76 (95) 97 Room Air 11/11/19 16:25 2 I&O- Last 24 Hours up to 6 AM 11/12/19 06:00 Intake Total 3140 ml Output Total 575 ml Balance 2565 ml Laboratory Data Labs 24H Laboratory Tests 2 11/11/19 22:45: Nucleated Red Blood Cells % (auto) 0.0, Anion Gap 7L, Glomerular Filtration Rate 40.9, Calcium Level 8.8 11/12/19 06:22: Nucleated Red Blood Cells % (auto) 0.0, Anion Gap 6L, Glomerular Filtration Rate 47.4, Calcium Level 8.8 CBC/BMP Laboratory Tests 11/11/19 22:45 11/12/19 06:22 Discharge Medications Scheduled Aspirin (Ecotrin) 81 Mg Tablet.dr, 81 MG PO DAILY, (Reported) Cholecalciferol (Vitamin D3) (Vitamin D3) 25 Mcg Capsule, 25 MCG PO DAILY, (R eported) Levothyroxine Sodium (Levothyroxine Sodium) 88 Mcg Tab, 88 MCG PO ASDIRECTED, (Reported) SUNDAY, SUN, SUNDAY, SAT, SUN Levothyroxine Sodium (Levo-T) 75 Mcg Tablet, 75 MCG PO 2XW, (Reported) SUNDAY AND SUNDAY Lisinopril (Lisinopril) 2.5 Mg Tablet, 2.5 MG PO DAILY, (Reported) Multivitamin (Multivitamins) 1 Cap Cap, 1 CAP PO DAILY, (Reported) Nitroglycerin (Nitroglycerin) 0.4 Mg Sub, 0.4 MG SL ASDIRECTED for chest pain, (Reported) 1st sign of attack; may repeat every 5 mins; if pain persists after 3 in 15 min, medical attention is recommended Pantoprazole Sodium (Pantoprazole Sodium) 40 Mg Tab, 40 MG PO DAILY, (Reported) Simvastatin (Simvastatin) 40 Mg Tab, 40 MG PO DAILY, (Reported) Scheduled PRN Acetaminophen (Tylenol) 325 Mg Tablet, 650 MG PO Q4-6HP PRN for PAIN OR FEVER, (Reported) Tramadol HCl (Ultram) 50 Mg Tablet, 50 MG PO every 6 hours PRN for pain Allergies Coded Allergies: No Known Allergies (Unverified , 01/29/18) TRACY MANUEL MD Nov 12, 2019 12:03
--- NOTE | 2019-11-12 12:33 | IPNPDOC ---
Subjective General Date Seen: Nov 12, 2019 Subject Chief Complaint/History The patient is a 79-year-old female admitted with a reason for visit of Right Breast Cancer And Suspicious Lesion. s/p R lumpectomy x 2 and R SLNBx POD1 Patient is doing well postop. There were no issues with her heart overnight. Her vitals remained stable. She was able to tolerate food and she voided. She did not require pain medications. Current Medications Current Medications Current Medications Medications (Trade) Dose Ordered Sig/Gaurang Route PRN Reason Start Time Stop Time Status Last Admin Dose Admin Acetaminophen (Tylenol Tab) 500 mg Q6HP PRN PO PAIN 1-3 11/11/19 22:15 Acetaminophen (Tylenol Tab) 1,000 mg Q6HP PRN PO PAIN 4-6 11/11/19 22:15 Fentanyl Citrate (Sublimaze) 25 mcg Q5MP PRN IV PAIN LEVEL 5-10 11/11/19 17:00 11/11/19 18:00 DC Fentanyl Citrate (Sublimaze) 25 mcg Q5MP PRN IV PAIN LEVEL 5-10 11/11/19 22:00 11/11/19 22:59 DC Hydralazine HCl (Apresoline) 10 mg Q6HP PRN PO SBP>160 11/11/19 18:30 Hydromorphone HCl (Dilaudid) 0.2 mg Q5MP PRN IV PAIN LEVEL 4-7 11/11/19 17:00 11/11/19 18:00 DC 11/11/19 18:01 Hydromorphone HCl (Dilaudid) 0.2 mg Q5MP PRN IV PAIN LEVEL 4-7 11/11/19 22:00 11/11/19 22:59 DC Lactated Ringer's 1,000 ml @ 100 mls/hr Q10H IV 11/11/19 17:00 11/11/19 18:00 DC Lactated Ringer's 1,000 ml @ 100 mls/hr Q10H IV 11/11/19 22:00 11/11/19 22:59 DC Lisinopril (Prinivil) 2.5 mg DAILY PO 11/11/19 22:41 11/12/19 08:33 Miscellaneous (Unresolved Clarification Entry) SEE LABEL COMMENTS DAILY XX 11/11/19 09:00 Ondansetron HCl (ZOFRAN INJection) 4 mg Q4HP PRN IV NAUSEA OR VOMITING 11/11/19 17:00 11/11/19 18:00 DC 11/11/19 16:45 Ondansetron HCl (ZOFRAN INJection) 4 mg Q4HP PRN IV NAUSEA OR VOMITING 11/11/19 22:00 11/11/19 22:59 DC Oxycodone HCl (Roxicodone, Oxyir) 5 mg ASDIRECTED PRN PO PAIN LEVEL 1-4 11/11/19 17:00 11/11/19 18:00 DC Oxycodone HCl (Roxicodone, Oxyir) 5 mg ASDIRECTED PRN PO PAIN LEVEL 1-4 11/11/19 22:00 11/11/19 22:59 DC Sodium Chloride 1,000 ml @ 15 mls/hr Q24H IV 11/11/19 09:45 11/11/19 16:56 DC Tramadol HCl (Ultram) 50 mg Q6HP PRN PO PAIN 7-10 11/11/19 22:15 Allergies Coded Allergies: No Known Allergies (Unverified , 01/29/18) Objective Physical Examination Examination GENERAL APPEARANCE:Patient seen, laying in bed, awake, alert, and oriented. Comfortable, in no acute distress. SKIN: Warm and moist. BREAST: Right axillary incision and the right periareolar incision are well approximated. There is no signs of hematoma. There is no excessive ecchymosis LUNGS: Breathing comfortably on room air HEART: Not tachycardic ABDOMEN: Abdomen soft EXTREMITIES: Using right upper extremity without issues Vital Signs Vital Signs Date Time Temp Pulse Resp B/P (MAP) Pulse Ox O2 Delivery O2 Flow Rate FiO2 11/12/19 10:00 98.2 68 17 135/76 (95) 97 Room Air 11/11/19 16:25 2 I&Os I&O- Last 24 Hours up to 6 AM 11/12/19 06:00 Intake Total 3140 ml Output Total 575 ml Balance 2565 ml Laboratory Data Labs 24H Laboratory Tests 2 11/11/19 22:45: Nucleated Red Blood Cells % (auto) 0.0, Anion Gap 7L, Glomerular Filtration Rate 40.9, Calcium Level 8.8 11/12/19 06:22: Nucleated Red Blood Cells % (auto) 0.0, Anion Gap 6L, Glomerular Filtration Rate 47.4, Calcium Level 8.8 CBC/BMP Laboratory Tests 11/11/19 22:45 11/12/19 06:22 Impression 79-year-old female with history of right breast cancer at 4:00 and right breast suspicious lesion at 12:00 status post right breast lumpectomy 2 and right sentinel lymph node biopsy POD1 -Continue incentive spirometer -Keep Yobani wrap till tomorrow -Use Dr. Cueto preprinted postoperative instructions -Prescription for tramadol was sent to pharmacy -Postop schedule for Sunday 9:30 in the morning -stable for discharge, this was communicated with nurse Vera Plan / VTE VTE Prophylaxis Ordered?: Yes JIM CUETO DO Nov 12, 2019 12:33
--- NOTE | 2019-11-19 17:57 | REP ---
NEEDLE LOCALIZATION UNDER SONOGRAPHIC GUIDANCE Sonographic guidance is provided to Dr. Gates who performed ultrasound- guided Kopans wire needle localization and HydroMARK clip placement procedure. MARTINA
--- NOTE | 2019-12-08 10:32 | REP ---
RIGHT BREAST LYMPHOSCINTIGRAPHY The procedure was performed under the direct supervision of Dr. Del Angel. The images were reviewed with Dr. Del Angel. The risks and benefits of the procedure were explained to the patient and informed consent was obtained. Using topical anesthetic and sterile technique, 1.029 mCi of Technetium-99m filtered sulfur colloid was injected subdermally in eight fractionated periareolar injections. Images obtained one hour of injections showed two foci of silvio uptake in the axillary region on the right. IMPRESSION: Right breast lymphoscintigraphy. There are two foci of silvio uptake in the axillary region on the right. MTDD
--- NOTE | 2019-12-23 09:20 | REP ---
SPECIMEN RADIOGRAPHS Three specimen radiographs are performed. Two sites of lumpectomy were localized with ultrasound guidance for Dr. Gates and two separate lumpectomies were apparently performed. FINDINGS: The first image shows a biopsy clip, which was at the 12 o'clock position of the right breast along with a few tiny soft tissue fragments. The second image shows a large soft tissue fragment containing a Kopans wire. The third image shows the nodule that was seen in the inferomedial right breast and this appears to have adequate soft tissue margins circumferentially. The previously noted biopsy clip is again seen at the margin of the nodule. HEIDID
== END 2019-11-12 12:25 | disposition home or self-care (01) ==
LOC: M RADPRO 07:24 → M SDC 07:24 → M MSPAV 21:15 → M RADPRO 11-12 12:25
PROVIDERS: ATTEND Surgery
DX: C50.911 Malignant neoplasm of unspecified site of right female breast (principal); Z17.0 Estrogen receptor positive status [ER+]; I10 Essential (primary) hypertension; I25.10 Atherosclerotic heart disease of native coronary artery without angina pectoris; Z98.61 Coronary angioplasty status; Z85.038 Personal history of other malignant neoplasm of large intestine; Z90.49 Acquired absence of other specified parts of digestive tract; K21.9 Gastro-esophageal reflux disease without esophagitis; Z79.82 Long term (current) use of aspirin; Z79.899 Other long term (current) drug therapy
CPT/HCPCS: 19125; 19126; 36415; 38525; 76942; 78195; 80048; 85027; 86850; 86900; 86901; 88305; 88307; A9541; J0131; J0330; J0690; J1100; J1644; J2250; J2405; J3010

== ENCOUNTER → 2019-12-12 | Outpatient (CLI) | payer MEDICARE ==
[~2019-12-12] MED LIST changes: +ANAS1TAB2 PO; +ULTR50TA8 PO
--- NOTE | 2020-01-15 14:05 | RADONC ---
RADIATION ONCOLOGY CONSULTATION NOTE DATE: 12/12/2019 Chart #[id number] DIAGNOSIS: 1. Right breast cancer. 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 ECOG performance status 0. CONSULTATION NOTE: Ms. 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 HISTORY OF PRESENT ILLNESS: The patient was in her usual state of health until routine mammography revealed a lesion present in the lower inner quadrant of her right breast at the 4 oclock position. On 09/24/2019, the patient underwent core biopsies of her two suspicious areas. The lesion in the 4 oclock position of the right breast revealed a Grade 1 of 3 (low-grade) mucinous adenocarcinoma. The tumor was estrogen receptor strongly positive at 100%, progesterone receptor strongly positive at 100% and HER2 negative. The biopsy of the lesion in the 12 oclock position was benign with focal fatty necrosis only. The patient did well and subsequently underwent a re-excision of both sites. The lesion in the 12 oclock position was negative for malignancy. Unfortunately, the lesion in the 4 oclock position showed a moderately differentiated mucinous adenocarcinoma. The tumor measured 2 cm x 1.5 cm x 1 cm. 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 All margins were negative for malignancy. A total of three sentinel lymph nodes were sampled and were negative for malignancy as well. Lymphovascular invasion was not identified. Therefore, the patient was staged as having a pathologic T1c and pathologic N0 breast adenocarcinoma. The patient has done well since surgery and saw Dr. Saucedo and has received a prescription for an aromatase inhibitor to be initiated following completion of radiation. She is now being referred to me for discussion if postoperative radiation therapy for conservative breast management. PAST MEDICAL HISTORY: The patients past medical history is positive for a history of colon cancer in 2006 which was resected. She had postoperative chemotherapy but no radiation. In addition, the patient had an RI in 2003 for which she underwent cardiac bypass surgery and had stents placed. She has had right cataract surgery in 2007. She had left cataract surgery in 2019. She has a history of arthritis and hypertension as well as hypothyroidism. ALLERGIES: The patient has no known drug allergies. SOCIAL HISTORY: The patient does not smoke cigarettes nor abuse alcohol. FAMILY HISTORY: The patients family history is positive for a sister with colon cancer. It is negative for any other malignancies. REVIEW OF SYSTEMS: The patients review of systems is noncontributory. She denies nausea, vomiting, fevers, chills, night sweats, diplopia, headaches, anxiety, depression, anorexia, weight loss, visual disturbances, chest pain, urinary or bowel difficulties, bone pain or neurological problems. PHYSICAL EXAMINATION: GENERAL: The patient is a well-developed, well-nourished white female in no acute distress. HEENT: Normocephalic, atraumatic. Extraocular movements are intact. LYMPH: There is no palpable cervical, supraclavicular, infraclavicular, axillary or inguinal lymphadenopathy present. LUNGS: Clear to auscultation and percussion. HEART: Regular rate and rhythm. BREASTS: No masses or discharge bilaterally. She has well-healed surgical scars present over her right breast consistent with her history. EXTREMITIES: No clubbing, cyanosis or edema. NEUROLOGIC: Grossly intact. ASSESSMENT: I had a lengthy discussion with this patient and discussed with her in detail the potential benefits as well as possible acute and chronic sequelae of external beam radiation therapy. We discussed logistics of treatment planning, simulation and subsequent fractionated daily radiation treatments. The patient still seems somewhat undecided on radiation and may wish to just do her aromatase inhibitors. The way we left it, I am scheduling her for a simulation sometime next week. If she decides against treatment she can cancel that simulation and this way there is no unnecessary delay in treatment. She is already now four weeks post surgery and the area is well-healed. I discussed with her the hypo-fractionated [place] protocol and I have recommended three weeks of treatment to this breast. Of course, further recommendations can be adjusted when she meets Dr. Roman, her treating physician. She is aware at her age that it may be reasonable to withhold radiation, however she reports that her mother was 101 years old and she does appear somewhat younger than her stated age. Thank you for allowing us to participate in the care of this very pleasant woman. MARTINA
== END ==
LOC: M ONCR 10:08
PROVIDERS: ATTEND Radiology Radiation Oncology
DX: C50.919 Malignant neoplasm of unspecified site of unspecified female breast (principal)

== ENCOUNTER → 2019-12-15 | Outpatient (CLI) | payer MEDICARE ==
--- NOTE | 2019-12-23 12:19 | DEXA ---
AP SPINE L1 - L4 1.034 -1.3 0.5 LT FEMUR TOTAL 0.822 -1.5 0.5 LT NECK 0.861 -1.3 0.9 RT FEMUR TOTAL RT NECK TOTAL BODY TOTAL OTHER COMMENTS: There is low bone density of the spine. There is low bone density of the left hip. FOLLOW-UP: Recommendation for the next bone density exam: 2 years MARTINA
== END ==
LOC: M WHC 09:46
PROVIDERS: ATTEND Specialist
DX: C50.311 Malignant neoplasm of lower-inner quadrant of right female breast (principal); Z78.0 Asymptomatic menopausal state
CPT/HCPCS: 77080; G0463

== ENCOUNTER 2020-01-16 07:49 | Outpatient (RCR) | payer MEDICARE ==
[~2020-01-16 07:49] MED LIST changes: -ANAS1TAB2 PO
== END 2020-01-17 ==
LOC: M ONCR 07:49
PROVIDERS: ATTEND General Practice
DX: C50.311 Malignant neoplasm of lower-inner quadrant of right female breast (principal)

== ENCOUNTER 2020-01-21 07:54 | Outpatient (RCR) | payer MEDICARE ==
[2020-01-21] MEDS ORDERED: ANAS1TAB2 PO (10:55)
== END 2020-02-16 ==
LOC: M ONCR 07:54
PROVIDERS: ATTEND General Practice
DX: C50.311 Malignant neoplasm of lower-inner quadrant of right female breast (principal)

== ENCOUNTER 2020-04-27 12:38 | Inpatient (IN) | payer MEDICARE ==
[~2020-04-27] VITALS: Ht 165.1 cm; Wt 82.1 kg
[~2020-04-27 12:38] MED LIST changes: +ANAS1TAB2 PO
[2020-04-27] MEDS ORDERED: BISACODYL 10 MG SUPP PR PRN (14:00)
[2020-04-27] MEDS ORDERED: BISACODYL 5 MG TAB PO PRN (14:00)
[2020-04-27] MEDS ORDERED: ACETAMINOPHEN TAB 650MG DOSE (2X325MG) PO PRN (14:00)
[2020-04-27 18:05] VITALS: BP 129/79
[2020-04-27] MEDS ORDERED: ASPI81CH33 PO (18:37)
[2020-04-27] MEDS ORDERED: LISI-898 PO (18:37)
[2020-04-27] MEDS ORDERED: ENOX40IN3 SC (18:38)
[2020-04-27] MEDS ORDERED: LIDO1PAD TOP (18:38)
[2020-04-27] MEDS ORDERED: PANT40TA29 PO (18:38)
[2020-04-27] MEDS ORDERED: MULT-90 PO (18:38)
[2020-04-27] MEDS ORDERED: ANAS1TAB2 PO (18:38)
[2020-04-27] MEDS ORDERED: ATOR40TA75 PO (18:38)
[2020-04-27 20:00] VITALS: BP 152/70
[2020-04-27] MEDS: SIMVASTATIN 40 MG TAB PO SCH (20:44)
[2020-04-27] MEDS: REMEDY PHYTOPLEX Z-GUARD PASTE 113GM TUBE (FROM STOREROOM PRODUCT) TOP SCH (20:45)
[2020-04-27] MEDS: SENNA 8.6 MG TAB (SENOKOT) PO SCH (20:45)
[2020-04-27] MEDS: DOCUSATE SODIUM 100MG CAPSULE PO SCH (20:45)
[2020-04-28 05:27] VITALS: BP 149/78
[2020-04-28] MEDS: LEVOTHYROXINE 88MCG TABLET (0.088 MG) PO SCH (05:43)
[2020-04-28 06:48] LABS: BASO % 0.6 % (0.0-1.0); EOS # 0.4 10^3/uL (0.0-0.5); EOS % 5.1 % (0.0-3.0); HEMATOCRIT 36.6 % (36.0-47.0); HEMOGLOBIN 12.1 g/dl (12.0-15.5); LYMPH # 2.2 10^3/uL (1.5-5.0); LYMPH % 30.3 % (24.0-44.0); MEAN CORPUSCULAR HEMOGLOBIN 33.3 pg (27.0-33.0); MEAN CORPUSCULAR HGB CONC 33.1 g/dl (32.0-36.5); MEAN CORPUSCULAR VOLUME 100.8 fl (80.0-96.0); MONO # 0.5 10^3/uL (0.0-0.8); MONO % 6.4 % (0.0-5.0); NEUTROPHILS # 4.1 10^3/uL (1.5-8.5); NEUTROPHILS % 57.3 % (36.0-66.0); PLATELET COUNT, AUTOMATED 135 10^3/uL (150-450); RED BLOOD COUNT 3.63 10^6/uL (4.00-5.40); WHITE BLOOD COUNT 7.2 10^3/uL (4.0-10.0)
[2020-04-28 07:12] LABS: ALBUMIN 2.9 GM/DL (3.2-5.2); ALT/SGPT 14 U/L (12-78); BILIRUBIN,TOTAL 0.4 MG/DL (0.2-1.0); BLOOD UREA NITROGEN 19 MG/DL (7-18); CALCIUM LEVEL 7.8 MG/DL (8.8-10.2); CARBON DIOXIDE LEVEL 21 MEQ/L (21-32); CHLORIDE LEVEL 114 MEQ/L (98-107); CREATININE FOR GFR 0.95 MG/DL (0.55-1.30); GLOMERULAR FILTRATION RATE > 60.0 (>32); GLUCOSE, FASTING 93 MG/DL (70-100); POTASSIUM SERUM 3.7 MEQ/L (3.5-5.1); SODIUM LEVEL 144 MEQ/L (136-145); TOTAL PROTEIN 6.3 GM/DL (6.4-8.2)
[2020-04-28] MEDS: VITAMIN D 1,000 INTERNATIONAL UNITS TABLET PO SCH (08:47)
[2020-04-28] MEDS: LISINOPRIL *2.5 MG* TAB PO SCH (08:47)
[2020-04-28] MEDS: MULTIVITAMINS/MINERALS THERAP 1 TAB PO SCH (08:47)
[2020-04-28] MEDS: DOCUSATE SODIUM 100MG CAPSULE PO SCH ×2 (08:48→20:14)
[2020-04-28] MEDS: REMEDY PHYTOPLEX Z-GUARD PASTE 113GM TUBE (FROM STOREROOM PRODUCT) TOP SCH ×3 (08:48→20:15)
[2020-04-28] MEDS: ASPIRIN 81 MG ENTERIC TAB PO SCH (08:48)
[2020-04-28] MEDS: HEPARIN SOD (PORCINE) 5000UNITS/ML 1ML VIAL/SYRINGE SC SCH ×2 (08:48→20:14)
[2020-04-28] MEDS: OYSTER SHELL CALCIUM 500 MG TAB PO SCH (08:48)
[2020-04-28] MEDS: PANTOPRAZOLE 40MG TAB (PROTONIX) PO SCH (08:48)
--- NOTE | 2020-04-28 12:46 | HPEPDOC ---
[facility] Medical History & Physical Date of Admission Apr 27, 2020 Date of Service: Apr 28, 2020 Attending Physician: Ivette David MD History and Physical MEDICAL CONSULT H&P HISTORY OF PRESENT ILLNESS: Patient is an 79-year-old female with past medical history breast cancer status post radiation, colon cancer status post hemicolectomy in remission, hypertension, hyperlipidemia, CAD status post CABG, GERD, arthritis, anemia, hypothyroidism who was transferred to ARU from [facility] after having acute ischemic stroke of the left MCA, left frontal region. Etiology was suspected to be embolic, suspecting cardioembolic. She is post TPA. The patient had a extensive workup done at [facility] including CARYN (results are pending), CT angiography of the brain, MRI of the brain. She was assessed by physical and occupational therapy along with speech therapy who sherman ggested continued rehabilitation status post stroke. The patient was sent to the ARU at [facility] on 04/27/2020 to continue rehabilitation. Upon evaluation, the patient had no acute complaints. She states she feels as though her right-sided weakness is improving. She had chronic right lower extremity weakness status post CABG in 1999 for which she states is at baseline. Vital signs and labs were unremarkable. Medicine was consulted to continue to follow while she is in the rehabilitation unit. REVIEW OF SYSTEMS: CONSTITUTIONAL: Denies lack of energy, unexplained weight gain or weight loss, loss of appetite, fever, night sweats EYES: Denies eye drainage, eye pain, visual changes, dry/irritated eye EARS, NOSE, MOUTH, THROAT: Denies difficulty hearing, ringing in ears, mouth sores, loose teeth, sore throat, facial numbness or pain NECK: Denies swollen glands CARDIOVASCULAR: Denies irregular heartbeat, racing heart, chest pains, swelling of feet or legs, pain in legs with walking RESPIRATORY: Denies shortness of breath, night sweats, wheezing, sputum production, oxygen at home, coughing up blood, cough lasting > 1 month GASTROINTESTINAL: Denies abdominal pain, constipation, bloody stool, diarrhea, heartburn, nausea, vomiting GENITOURINARY: Denies painful urination, bloody urine, frequent urination, urgency, leaking urine, impotence MUSCULOSKELETAL: Denies joint pain, muscle pain, leg swelling INTEGUMENTARY: Denies rash, itching, new skin lesion, change in existing skin lesion, hair loss or increase, breast changes. NEUROLOGICAL: Denies headaches, dizziness, numbness or tingling PSYCHIATRIC: Denies depression, anxiety, recurrent bad thoughts, mood swings, hallucinations PAST MEDICAL HISTORY: Acute left MCA, left frontal region ischemic stroke possibly cardioembolic CAD status post CABG Hypertension Low-grade mucinous adenocarcinoma right breast, status post lumpectomy and radiation therapy History of colon cancer status post hemicolectomy Hyperlipidemia Arthritis Hypothyroidism PAST SURGICAL HISTORY: Breast surgery Surgery Cholecystectomy Colonoscopy Coronary artery bypass graft Eye surgery Colectomy FAMILY HISTORY: Father: Heart disease Mother: Cancer SOCIAL HISTORY: Agent is . She denies smoking, alcohol or drug use history. She [place] in the local area. She is a full code. ALLERGIES: Please see below. HOME MEDICATIONS: Please see below. PHYSICAL EXAMINATION: VS: Please see below CONSTITUTIONAL: No acute distress, resting comfortably sitting at bedside chair , AAO x 3 EYES: PERRLA, EOM intact HENT, MOUTH: Right side facial droop, moist mucous membranes NECK: SUPPLE, no JVD, no lymphadenopathy, no carotid bruit CV: Regular rate and rhythm, S1S2 normal, no murmurs/rubs/gallops RESPIRATORY: Clear to auscultation bilaterally, no rales/rhonchi/wheezes GI: obese abd, BS positive in 4 quadrants, soft, nontender, nondistended, no rebound or guarding, no organomegaly : Deferred MUSCULOSKELETAL: Normal ROM. No cyanosis, clubbing, swelling, joint deformity, extremity edema INTEGUMENTARY: Intact, no rashes, no lesions, no erythema NEUROLOGIC: Strength 5/5 in all upper ext, in LLE. 4/5 strength in LLE (branch operations specialist main). Right side facial droop, no tongue deviation, reflexes intact in all extremities PSYCHIATRIC: Mood and affect are normal LABORATORY DATA: Please see below IMAGING: No new imaging since admission ASSESSMENT: Patient is an 79-year-old female with past medical history breast cancer status post radiation, colon cancer status post hemicolectomy in remission, hypertension, hyperlipidemia, CAD status post CABG, GERD, arthritis, anemia, hypothyroidism who was transferred to ARU from [facility] after having acute ischemic stroke of the left MCA, left frontal region. DIAGNOSES: Acute left MCA, left frontal region ischemic stroke possibly cardioembolic CAD status post CABG Hypertension Low-grade mucinous adenocarcinoma right breast, status post lumpectomy and radiation therapy History of colon cancer status post hemicolectomy Hyperlipidemia Arthritis Hypothyroidism PLAN: C/w current PT/OT schedule and active medications. Chronic issues appear stable. Goal is home after ARU. DISPOSITION: Thank you kindly for this consult. We will continue to follow closely while here. Vital Signs Vital Signs Date Time Temp Pulse Resp B/P (MAP) Pulse Ox O2 Delivery O2 Flow Rate FiO2 04/28/20 08:47 149/78 04/28/20 05:27 98.5 75 18 95 Room Air Laboratory Data Labs 24H Laboratory Tests 2 04/28/20 06:28: Immature Granulocyte % (Auto) 0.3, Neutrophils (%) (Auto) 57.3, Lymphocytes (%) (Auto) 30.3, Monocytes (%) (Auto) 6.4H, Eosinophils (%) (Auto) 5.1H, Basophils (%) (Auto) 0.6, Neutrophils # (Auto) 4.1, Lymphocytes # (Auto) 2.2, Monocytes # (Auto) 0.5, Eosinophils # (Auto) 0.4, Basophils # (Auto) 0.0, Nucleated Red Blood Cells % (auto) 0.0, Anion Gap 9, Glomerular Filtration Rate > 60.0, Calcium Level 7.8L, Total Bilirubin 0.4, Aspartate Amino Transf (AST/SGOT) 14, Alanine Aminotransferase (ALT/SGPT) 14, Alkaline Phosphatase 48, Total Protein 6.3L, Albumin 2.9L, Albumin/Globulin Ratio 0.9L CBC/BMP Laboratory Tests 04/28/20 06:28 Home Medications Scheduled Anastrozole (Anastrozole) 1 Mg Tablet, 1 MG PO DAILY Aspirin (Aspirin) 81 Mg Tab.chew, 81 MG PO DAILY Cholecalciferol (Vitamin D3) (Vitamin D3) 25 Mcg Capsule, 25 MCG PO DAILY Enoxaparin Sodium (Enoxaparin Sodium) 40 Mg/0.4 Ml Syringe, 40 MG SC DAILY Levothyroxine Sodium (Levothyroxine Sodium) 88 Mcg Tab, 88 MCG PO DAILY Lidocaine (Lidocaine) 5% Adh..patch, 1 PATCH TOP DAILY APPLY TO BACK Lisinopril (Lisinopril) 5 Mg Tablet, 5 MG PO DAILY Multivitamin (Multivitamin) 1 Each Tablet, 1 EACH PO DAILY Nitroglycerin (Nitroglycerin) 0.4 Mg Sub, 0.4 MG SL ASDIRECTED for chest pain 1st sign of attack; may repeat every 5 mins; if pain persists after 3 in 15 min, medical attention is recommended Pantoprazole Sodium (Pantoprazole Sodium) 40 Mg Tablet.dr, 40 MG PO DAILY Simvastatin (Simvastatin) 40 Mg Tab, 40 MG PO DAILY Scheduled PRN Acetaminophen (Tylenol) 325 Mg Tablet, 650 MG PO Q4-6HP PRN for PAIN OR FEVER Allergies Coded Allergies: No Known Allergies (Unverified , 01/29/18) A-FIB/CHADSVASC A-FIB History Current/History of A-Fib/PAF?: No Current PO Anticoag Therapy: No Age/Risk Factor Scoring CHADSVASC: CHADSVASC Response (Comments) Value Age Risk Factor Age >/= 75 years old 2 Gender Risk Factor Female 1 Hx of CHF No 0 Hx of HTN Yes 1 Hx of Stroke/TIA/or VTE Yes 2 Hx of Diabetes No 0 Hx of Vascular Disease No 0 Total 6 Treatment Treatment ordered: Other Other anticoagulant ordered: heparin Ivette David MD Apr 28, 2020 12:46
--- NOTE | 2020-04-28 13:13 | HPEPDOC ---
Professor In Family Studies Note DATE OF ADMISSION: 04-27-20 DATE OF SERVICE: 04-28-20 TIME OF ADMISSION: Please refer to physician's admission order. SOURCE OF ADMISSION INFORMATION: [facility] record and patient CHIEF COMPLAINT: stroke HISTORY OF PRESENT ILLNESS: 79F pmh HLD, HTN, CAD s/p CABG, hypothyroidism, neuropathy, breast cancer s/p radiation, colon cancer s/p hemicolectomy presented to [facility] ED on 04-24-20 with dysarthria. CTH was negative for acute hemorrhage and CTA head and neck showed, Multiple hypoattenuating lesions within bilateral subinsular region, right basal ganglia and right frontal subcortical white matter and left frontal regions which are most consistent with subacute to chronic lacunar infarctsNo occlusion or significant stenosis in the arteries of the neck. Patient received TPA, follow-up MRI showed "Acute lacunar infarcts in the left middle frontal lobe at the level of the centrum semiovale...old lacunar infarcts in the basal ganglia bilaterally." CARYN with bubble study showed a patent foramen ovale with grade 1 right to left shunt. Doppler Venous study 04-27-20 was negative for DVTs and she was evaluated by cardiology who placed a loop recorder for cryptogenic stroke on 04-26-20. She was maintained on aspirin and stating for secondary strok e prevention, found to have mobility and ADLs impairments, placed on a dysphagia diet, and deemed medically appropriate for discharge to ARU on 04-27-20. REVIEW OF SYSTEMS: The following is a completed review of systems and has been reviewed. Review of systems otherwise unremarkable. PAIN: Patient self reports no pain EYES: No recent vision changes EARS, NOSE, & THROAT: +dysphagia CARDIOVASCULAR: denies chest pain or palpitations PULMONARY: Denies shortness of breath GASTROINTESTINAL: Denies constipation/diarrhea GENITOURINARY: denies dysuria MUSCULOSKELETAL: generalized weakenss NEUROLOGICAL:dysphagia and mild aphasia. HEMATOLOGICAL:denies easy bruising SKIN: no rash PSYCHIATRIC: Unremarkable All other review of systems found to be negative. PAST MEDICAL HISTORY: as per HPI PAST SURGICAL HISTORY: As per HPI and cholecystectomy, bilat cataract surgery, retinal separation surgery ALLERGIES: Please see below. MEDICATIONS: Please see below. FAMILY HISTORY: Cardiac, colon cancer SOCIAL HISTORY: No etoh/illicit drugs/smoking DIET: level 2 and nectar PHYSICAL EXAMINATION: VITAL SIGNS: Please see below. GENERAL: Pleasant and cooperative. No acute distress. HEENT: PERRL. Extraocular movements intact. Clear conjunctiva, slight right sided facial droop CARDIOVASCULAR: Regular rate and rhythm. No murmurs, rubs, or gallops LUNGS: Clear to auscultation bilaterally. No wheezes. No rhonchi ABDOMEN: Soft, nontender, nondistended. Positive bowel sounds. Normal active bowel sounds NEUROLOGICAL: Alert and oriented times three. Cranial nerves II through XII grossly intact. Sensation grossly intact -no dysmetria, mild right sided pronator drift, +mild expressive aphasia, visual shah intact -no clonus/ghotra's EXTREMITIES: 5\\5 strength bilateral upper extremities. 5\\5 strength right knee extension/flexion/ ankle DF/PF (hip flexion 4/5 chronic), 5/5 strength in left lower extremity. SKIN: chest wall loop recorder incision LABORATORY DATA: Please see below. 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 Neuro- s/p acute lacunar infarcts in the left middle frontal lobe at the level of the centrum semiovale, c/u ASA and statin for secondary stroke prevention- LOOP recorder in place to check for Afib -+PFO on recent CARYN, f/u with cardiology at [facility]- LE Dopplers negative for DVT p erformed at [facility] 04-27-20 3. CArdiac- hx of CAD with CABG, c/u ASA and lisinopril -HLD- c/u zocor -medicine consulted to assist in overall management 4. Endo- hx of hypothyroidism c/u synthroid 5. GI ppx-protonix 6. DVT ppx - teds and heparin 7. pain- tylenol prn 8. Dispo- tbd POST ADMISSION PHYSICIAN EVALUATION: Medical and functional status: Description of medical status, medical assessment: As above. Rehabilitation diagnosis and current and prior cold morbid medical conditions as above. Risk of complications and plans to mitigate them as above. Description of functional status current status is as above. Prior status as above. Status compared to preadmission: There are no clinically significant differences between the patient's current status and the information described on the preadmission screening document. Treatment plan anticipated: Treatment plan is as described above. Required disciplines including physical therapy, occupational therapy, others as noted above Intensity of services: 3 hours a day, 6 days a week. Special considerations: There are no specific special or safety considerations that would likely preclude immediate implementation of an intensive rehabilitation program or subsequently influence the plan of care. ATTESTATION: Considering all the information above, it is my best judgment that this patient requires intensive rehabilitation therapy as described above and an inpatient hospital environment due to the complexity of nursing, medical, and rehabilitation needs required by the patient. Furthermore, this patient can allison sonably be expected to participate in an benefit from an inpatient rehabilitation stay with an interdisciplinary team approach to the delivery of rehabilitation care under the direction and supervision of rehabilitation physician. PROGNOSIS: Excellent ESTIMATED LENGTH OF STAY:7-10 days. PROJECTED DISCHARGE DESTINATION: Home with family support and any durable medical equipment required to increase functional safety and mobility. TIME SPENT COUNSELING AND COORDINATING INITIAL CARE: Greater than 70 minutes. Vital Signs Vital Sign - Last 24 Hours 04/27/20 04/27/20 04/28/20 04/28/20 18:05 20:00 05:27 08:47 Temp 97.9 97.7 98.5 Pulse 94 76 75 Resp 18 18 18 B/P (MAP) 129/79 (96) 152/70 (97) 149/78 (101) 149/78 Pulse Ox 99 97 95 O2 Delivery Room Air Room Air Room Air Laboratory Data CBC/BMP Laboratory Tests 04/28/20 06:28 Labs 24H Laboratory Tests 2 04/28/20 06:28: Immature Granulocyte % (Auto) 0.3, Neutrophils (%) (Auto) 57.3, Lymphocytes (%) (Auto) 30.3, Monocytes (%) (Auto) 6.4H, Eosinophils (%) (Auto) 5.1H, Basophils (%) (Auto) 0.6, Neutrophils # (Auto) 4.1, Lymphocytes # (Auto) 2.2, Monocytes # (Auto) 0.5, Eosinophils # (Auto) 0.4, Basophils # (Auto) 0.0, Nucleated Red Blood Cells % (auto) 0.0, Anion Gap 9, Glomerular Filtration Rate > 60.0, Calcium Level 7.8L, Total Bilirubin 0.4, Aspartate Amino Transf (AST/SGOT) 14, Alanine Aminotransferase (ALT/SGPT) 14, Alkaline Phosphatase 48, Total Protein 6.3L, Albumin 2.9L, Albumin/Globulin Ratio 0.9L Home Medications Scheduled Anastrozole (Anastrozole) 1 Mg Tablet, 1 MG PO DAILY, (Reported) Aspirin (Aspirin) 81 Mg Tab.chew, 81 MG PO DAILY, (Reported) Cholecalciferol (Vitamin D3) (Vitamin D3) 25 Mcg Capsule, 25 MCG PO DAILY, (Reported) Enoxaparin Sodium (Enoxaparin Sodium) 40 Mg/0.4 Ml Syringe, 40 MG SC DAILY, (Reported) Levothyroxine Sodium (Levothyroxine Sodium) 88 Mcg Tab, 88 MCG PO DAILY, (Reported) Lidocaine (Lidocaine) 5% Adh..patch, 1 PATCH TOP DAILY, (Reported) APPLY TO BACK Lisinopril (Lisinopril) 5 Mg Tablet, 5 MG PO DAILY, (Reported) Multivitamin (Multivitamin) 1 Each Tablet, 1 EACH PO DAILY, (Reported) Nitroglycerin (Nitroglycerin) 0.4 Mg Sub, 0.4 MG SL ASDIRECTED, (Reported) 1st sign of attack; may repeat every 5 mins; if pain persists after 3 in 15 min, medical attention is recommended Pantoprazole Sodium (Pantoprazole Sodium) 40 Mg Tablet.dr, 40 MG PO DAILY, (Reported) Simvastatin (Simvastatin) 40 Mg Tab, 40 MG PO DAILY, (Reported) Scheduled PRN Acetaminophen (Tylenol) 325 Mg Tablet, 650 MG PO Q4-6HP PRN for PAIN OR FEVER, (Reported) Allergies Coded Allergies: No Known Allergies (Unverified , 01/29/18) A-FIB/CHADSVASC A-FIB History Current/History of A-Fib/PAF?: No Current PO Anticoag Therapy: No GAY SHAFFER MD Apr 28, 2020 13:13
[2020-04-28 14:00] VITALS: BP 124/65
[2020-04-28 20:00] VITALS: BP 159/76
[2020-04-28] MEDS: SENNA 8.6 MG TAB (SENOKOT) PO SCH (20:14)
[2020-04-28] MEDS: SIMVASTATIN 40 MG TAB PO SCH (20:14)
[2020-04-29] MEDS: LEVOTHYROXINE 88MCG TABLET (0.088 MG) PO SCH (05:45)
[2020-04-29 06:00] VITALS: BP 155/80
[2020-04-29] MEDS: REMEDY PHYTOPLEX Z-GUARD PASTE 113GM TUBE (FROM STOREROOM PRODUCT) TOP SCH ×3 (09:00→20:06)
[2020-04-29] MEDS: PANTOPRAZOLE 40MG TAB (PROTONIX) PO SCH (09:04)
[2020-04-29] MEDS: DOCUSATE SODIUM 100MG CAPSULE PO SCH ×2 (09:04→20:06)
[2020-04-29] MEDS: VITAMIN D 1,000 INTERNATIONAL UNITS TABLET PO SCH (09:04)
[2020-04-29] MEDS: ASPIRIN 81 MG ENTERIC TAB PO SCH (09:04)
[2020-04-29] MEDS: OYSTER SHELL CALCIUM 500 MG TAB PO SCH (09:04)
[2020-04-29] MEDS: MULTIVITAMINS/MINERALS THERAP 1 TAB PO SCH (09:04)
[2020-04-29] MEDS: LISINOPRIL *2.5 MG* TAB PO SCH (09:05)
[2020-04-29] MEDS: HEPARIN SOD (PORCINE) 5000UNITS/ML 1ML VIAL/SYRINGE SC SCH ×2 (09:05→20:06)
--- NOTE | 2020-04-29 10:05 | IPNPDOC ---
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 She denies worsening swelling in her legs. REVIEW OF SYSTEMS: The following is a completed review of systems and has been reviewed. Review of systems otherwise unremarkable. PAIN: Patient self reports no pain EYES: No recent vision changes EARS, NOSE, & THROAT: +dysphagia CARDIOVASCULAR: denies chest pain or palpitations PULMONARY: Denies shortness of breath GASTROINTESTINAL: Denies constipation/diarrhea GENITOURINARY: denies dysuria MUSCULOSKELETAL: generalized weakness NEUROLOGICAL:dysphagia and mild aphasia. HEMATOLOGICAL:denies easy bruising SKIN: no rash PSYCHIATRIC: Unremarkable All other review of systems found to be negative. PHYSICAL EXAMINATION: VITAL SIGNS: Please see below. GENERAL: Pleasant and cooperative. No acute distress. HEENT: PERRL. Extraocular movements intact. Clear conjunctiva, slight right sided facial droop CARDIOVASCULAR: Regular rate and rhythm. No murmurs, rubs, or gallops LUNGS: Clear to auscultation bilaterally. No wheezes. No rhonchi ABDOMEN: Soft, nontender, nondistended. Positive bowel sounds. Normal active b owel sounds NEUROLOGICAL: Alert and oriented times three. Cranial nerves II through XII grossly intact. Sensation grossly intact -no dysmetria, mild right sided pronator drift, +mild expressive aphasia, visual shah intact -no clonus/ghotra's EXTREMITIES: 5\5 strength bilateral upper extremities. 5\5 strength right knee extension/flexion/ ankle DF/PF (hip flexion 4/5 chronic), 5/5 strength in left lower extremity. 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 Neuro- s/p acute lacunar infarcts in the left middle frontal lobe at the level of the centrum semiovale, c/u ASA and statin for secondary stroke prevention- LOOP recorder in place to check for Afib -+PFO on recent CARYN, f/u with cardiology at [facility]- LE Dopplers negative for DVT performed at [facility] 04-27-20 3. CArdiac- hx of CAD with CABG, c/u ASA and lisinopril -HLD- c/u zocor -medicine consulted to assist in overall management 4. Endo- hx of hypothyroidism c/u synthroid 5. GI ppx-protonix 6. DVT ppx - teds and heparin 7. pain- tylenol prn 8. Dispo- tbd Allergies Coded Allergies: No Known Allergies (Unverified , 01/29/18) Vital Signs Vital Signs Date Time Temp Pulse Resp B/P (MAP) Pulse Ox O2 Delivery O2 Flow Rate FiO2 04/29/20 06:00 98.2 67 18 155/80 (105) 97 Room Air Current Medications Current Medications Current Medications Medications (Trade) Dose Ordered Sig/Gaurang Route PRN Reason Start Time Stop Time Status Last Admin Dose Admin Acetaminophen (Tylenol Tab) 650 mg Q4HP PRN PO fever/MILD PAIN (PS 1-4) 04/27/20 14:00 Aspirin (Ecotrin) 81 mg DAILY PO 04/28/20 09:00 04/29/20 09:04 Bisacodyl (Dulcolax Suppository) 10 mg DAILYPRN PRN RI CONSTIPATION 04/27/20 14:00 Bisacodyl (Dulcolax Tab) 5 mg DAILYPRN PRN PO CONSTIPATION 04/27/20 14:00 Calcium Carbonate (Oscal) 500 mg DAILY PO 04/28/20 09:00 04/29/20 09:04 Docusate Sodium (Colace) 100 mg BID PO 04/27/20 21:00 04/29/20 09:04 Heparin Sodium (Porcine) (Heparin) 5,000 units Q12H SC 04/28/20 09:00 04/29/20 09:05 Home Med (Med Rec Complete!) ASDIRECTED XX 04/27/20 18:45 04/27/20 18:54 DC Levothyroxine Sodium (Synthroid) 88 mcg DAILY@06 PO 04/28/20 06:00 04/29/20 05:45 Lisinopril (Prinivil) 2.5 mg DAILY PO 04/28/20 09:00 04/29/20 09:05 Multivitamins (Theragram-M) 1 tab DAILY PO 04/28/20 09:00 04/29/20 09:04 Pantoprazole Sodium (Protonix) 40 mg DAILY PO 04/28/20 09:00 04/29/20 09:04 Senna (Senokot) 1 tab QHS PO 04/27/20 21:00 04/28/20 20:14 Simvastatin (Zocor) 40 mg QHS PO 04/27/20 21:00 04/28/20 20:14 Vitamin D (Vitamin D) 1,000 units DAILY PO 04/28/20 09:00 04/29/20 09:04 GAY SHAFFER MD Apr 29, 2020 10:05
[2020-04-29 11:07] VITALS: BP 118/65
[2020-04-29] MEDS: METOPROLOL TART 25 MG TABLET PO SCH ×2 (11:07→20:06)
[2020-04-29 14:00] VITALS: BP 115/56
[2020-04-29 20:00] VITALS: BP 137/65
[2020-04-29] MEDS: SENNA 8.6 MG TAB (SENOKOT) PO SCH (20:06)
[2020-04-29] MEDS: SIMVASTATIN 40 MG TAB PO SCH (20:06)
[2020-04-30] MEDS: LEVOTHYROXINE 88MCG TABLET (0.088 MG) PO SCH (05:27)
[2020-04-30 06:00] VITALS: BP 155/81
[2020-04-30 06:42] LABS: BASO % 0.7 % (0.0-1.0); EOS # 0.4 10^3/uL (0.0-0.5); EOS % 6.3 % (0.0-3.0); LYMPH # 2.5 10^3/uL (1.5-5.0); LYMPH % 43.9 % (24.0-44.0); MEAN CORPUSCULAR HEMOGLOBIN 32.1 pg (27.0-33.0); MEAN CORPUSCULAR HGB CONC 31.4 g/dl (32.0-36.5); MONO # 0.6 10^3/uL (0.0-0.8); MONO % 9.5 % (0.0-5.0); NEUTROPHILS # 2.3 10^3/uL (1.5-8.5); NEUTROPHILS % 39.4 % (36.0-66.0); PLATELET COUNT, AUTOMATED 134 10^3/uL (150-450); RED BLOOD COUNT 3.43 10^6/uL (4.00-5.40); WHITE BLOOD COUNT 5.8 10^3/uL (4.0-10.0)
[2020-04-30 07:18] LABS: CALCIUM LEVEL 7.9 MG/DL (8.8-10.2); CREATININE FOR GFR 1.03 MG/DL (0.55-1.30); GLOMERULAR FILTRATION RATE 54.9 (>32); POTASSIUM SERUM 4.1 MEQ/L (3.5-5.1)
[2020-04-30] MEDS: PANTOPRAZOLE 40MG TAB (PROTONIX) PO SCH (08:29)
[2020-04-30] MEDS: OYSTER SHELL CALCIUM 500 MG TAB PO SCH (08:29)
[2020-04-30] MEDS: ASPIRIN 81 MG ENTERIC TAB PO SCH (08:30)
[2020-04-30] MEDS: MULTIVITAMINS/MINERALS THERAP 1 TAB PO SCH (08:30)
[2020-04-30] MEDS: HEPARIN SOD (PORCINE) 5000UNITS/ML 1ML VIAL/SYRINGE SC SCH ×2 (08:30→20:22)
[2020-04-30] MEDS: LISINOPRIL *2.5 MG* TAB PO SCH (08:30)
[2020-04-30] MEDS: METOPROLOL TART 25 MG TABLET PO SCH ×2 (08:30→20:21)
[2020-04-30] MEDS: VITAMIN D 1,000 INTERNATIONAL UNITS TABLET PO SCH (08:31)
[2020-04-30] MEDS: REMEDY PHYTOPLEX Z-GUARD PASTE 113GM TUBE (FROM STOREROOM PRODUCT) TOP SCH ×3 (08:31→20:22)
[2020-04-30] MEDS: DOCUSATE SODIUM 100MG CAPSULE PO SCH ×2 (08:31→20:23)
[2020-04-30 14:00] VITALS: BP 143/70
[2020-04-30] MEDS: CEPHALEXIN 500 MG CAP PO SCH ×2 (17:03→20:22)
[2020-04-30] MEDS: LACTOBACILLUS ACIDOPHILUS CAP (BACID) PO SCH ×2 (17:03→20:23)
--- NOTE | 2020-04-30 19:54 | REPVR ---
PROCEDURE INFORMATION: Exam: US Duplex Left Upper Extremity Veins, Limited Exam date and time: 04/30/2020 6:09 PM Age: 79 years old Clinical indication: Pain; Arm, upper; Left; Additional info: Antecubital fossa swelling TECHNIQUE: Imaging protocol: Real-time Duplex ultrasound of the Left Upper Extremity with 2-D locke scale, color Doppler flow and spectral waveform analysis with image documentation. Limited exam focused on the left upper extremity veins. COMPARISON: No relevant prior studies available. FINDINGS: Left deep veins: Unremarkable. Axillary and brachial veins are patent throughout without thrombus. Normal Doppler waveforms. Normal compressibility and/or augmentation response. Visualized internal jugular and subclavian veins are patent. Left superficial veins: There is occlusion of the left cephalic vein with thrombus from the level of the mid arm to the antecubital fossa. This is probably a combination of acute and chronic thrombus. There are echogenic fibrous strands identified along with acute hypoechoic thrombus. There is venous return of the basilic vein. IMPRESSION: There is both acute and chronic occluding thrombus within the left cephalic vein from the mid arm to the antecubital fossa. Linear echogenic areas are probably fibrotic strands mixed with acute hypoechoic occluding superficial thrombosis. Electronically signed by: Ander Rojo On 04/30/2020 19:54:30 PM
[2020-04-30 20:00] VITALS: BP 160/77
[2020-04-30] MEDS: SIMVASTATIN 40 MG TAB PO SCH (20:20)
[2020-04-30] MEDS: SENNA 8.6 MG TAB (SENOKOT) PO SCH (20:23)
[2020-05-01 05:11] VITALS: BP 170/68
[2020-05-01] MEDS: LEVOTHYROXINE 88MCG TABLET (0.088 MG) PO SCH (05:27)
[2020-05-01] MEDS: LISINOPRIL *2.5 MG* TAB PO SCH (05:28)
[2020-05-01] MEDS ORDERED: PILL CUTTER 1 EACH XX PRN (05:30)
[2020-05-01] MEDS: DOCUSATE SODIUM 100MG CAPSULE PO SCH ×2 (08:02→20:49)
[2020-05-01 08:45] VITALS: BP 137/67
[2020-05-01] MEDS: LACTOBACILLUS ACIDOPHILUS CAP (BACID) PO SCH ×4 (08:46→20:50)
[2020-05-01] MEDS: VITAMIN D 1,000 INTERNATIONAL UNITS TABLET PO SCH (08:46)
[2020-05-01] MEDS: PANTOPRAZOLE 40MG TAB (PROTONIX) PO SCH (08:46)
[2020-05-01] MEDS: CEPHALEXIN 500 MG CAP PO SCH ×4 (08:46→20:50)
[2020-05-01] MEDS: ASPIRIN 81 MG ENTERIC TAB PO SCH (08:46)
[2020-05-01] MEDS: MULTIVITAMINS/MINERALS THERAP 1 TAB PO SCH (08:46)
[2020-05-01] MEDS: METOPROLOL TART 25 MG TABLET PO SCH ×2 (08:46→20:51)
[2020-05-01] MEDS: REMEDY PHYTOPLEX Z-GUARD PASTE 113GM TUBE (FROM STOREROOM PRODUCT) TOP SCH ×3 (08:47→20:51)
[2020-05-01] MEDS: APIXABAN 5 MG TAB (ELIQUIS) PO SCH ×2 (08:47→20:50)
[2020-05-01] MEDS: OYSTER SHELL CALCIUM 500 MG TAB PO SCH (08:47)
--- NOTE | 2020-05-01 12:09 | IPNPDOC ---
Date Seen The patient was seen on 05/01/20. Progress Note SUBJECTIVE: Started on eliquis BID due to recent stroke, ? cardioembolic cause and severe pain and swelling. Warm compresses helping. No shortness of breath, n/v/d, chest pain. OBJECTIVE: PHYSICAL EXAMINATION: VS: Please see below CONSTITUTIONAL: No acute distress, resting comfortably sitting at bedside chair , AAO x 3 EYES: PERRLA, EOM intact HENT, MOUTH: Right side facial droop, moist mucous membranes NECK: SUPPLE, no JVD, no lymphadenopathy, no carotid bruit CV: Regular rate and rhythm, S1S2 normal, no murmurs/rubs/gallops RESPIRATORY: Clear to auscultation bilaterally, no rales/rhonchi/wheezes GI: obese abd, BS positive in 4 quadrants, soft, nontender, nondistended, no rebound or guarding, no organomegaly : Deferred MUSCULOSKELETAL: Left upper ext swollen, tender in AC area. Normal ROM. No cyanosis, clubbing, swelling, joint deformity, extremity edema INTEGUMENTARY: Intact, no rashes, no lesions, no erythema NEUROLOGIC: Strength 5/5 in all upper ext, in LLE. 4/5 strength in LLE (chronic). Right side facial droop, no tongue deviation, reflexes intact in all extremities PSYCHIATRIC: Mood and affect are normal LABORATORY DATA: Please see below IMAGING: US LUE: There is both acute and chronic occluding thrombus within the left cephalic vein from the mid arm to the antecubital fossa. Linear echogenic areas are probably fibrotic strands mixed with acute hypoechoic occluding superficial thro mbosis. ASSESSMENT: Patient is an 79-year-old female with past medical history breast cancer status post radiation, colon cancer status post hemicolectomy in remission, hypertension, hyperlipidemia, CAD status post CABG, GERD, arthritis, anemia, hypothyroidism who was transferred to ARU from [facility] after having acute ischemic stroke of the left MCA, left frontal region. DIAGNOSES: Left acute and chronic occluding left cephalic vein thrombus Acute left MCA, left frontal region ischemic stroke possibly cardioembolic CAD status post CABG Hypertension Low-grade mucinous adenocarcinoma right breast, status post lumpectomy and radiation therapy History of colon cancer status post hemicolectomy Hyperlipidemia Arthritis Hypothyroidism PLAN: Due to recent events with stroke, possible cryptogenic/thrombotic cause not being able to be identified, increased severe pain and hx of cancer being hypercoaguable, decision was made to treat with anticoagulation. Started on eliquis 10 mg PO BID x 7 days. Duration of treatment is not clearly stated; however, it is recommend to re-US in several weeks to see if resolution of clot. Unlike guidelines to DVT's, superficial thromboses guidelines go off of clinical picture and risk factors for duration of treatment with AC. Will discuss with Dr. Hunter's after the weekend. C/w current PT/OT schedule and active medications. Other chronic issues appear stable. Goal is home after ARU. VS, I&O, 24H, Fishbone Vital Signs/I&O Vital Signs Date Time Temp Pulse Resp B/P (MAP) Pulse Ox O2 Delivery O2 Flow Rate FiO2 05/01/20 08:46 66 137/67 05/01/20 05:11 97.3 17 98 Room Air I&O- Last 24 Hours up to 6 AM 05/01/20 06:00 Intake Total 1000 ml Balance 1000 ml Current Medications Current Medications Medications (Trade) Dose Ordered Sig/Gaurang Route PRN Reason Start Time Stop Time Status Last Admin Dose Admin Acetaminophen (Tylenol Tab) 650 mg Q4HP PRN PO fever/MILD PAIN (PS 1-4) 04/27/20 14:00 Apixaban (Eliquis) 5 mg BID PO 05/08/20 09:00 Apixaban (Eliquis) 10 mg BID PO 05/01/20 09:00 05/07/20 21:01 05/01/20 08:47 Aspirin (Ecotrin) 81 mg DAILY PO 04/28/20 09:00 05/01/20 08:46 Bisacodyl (Dulcolax Suppository) 10 mg DAILYPRN PRN ID CONSTIPATION 04/27/20 14:00 Bisacodyl (Dulcolax Tab) 5 mg DAILYPRN PRN PO CONSTIPATION 04/27/20 14:00 Calcium Carbonate (Oscal) 500 mg DAILY PO 04/28/20 09:00 05/01/20 08:47 Cephalexin Monohydrate (Keflex) 500 mg QID PO 04/30/20 17:00 05/05/20 13:01 05/01/20 08:46 Docusate Sodium (Colace) 100 mg BID PO 04/27/20 21:00 04/30/20 08:31 Heparin Sodium (Porcine) (Heparin) 5,000 units Q12H SC 04/28/20 09:00 05/01/20 07:45 DC 04/30/20 20:22 Home Med (Med Rec Complete!) ASDIRECTED XX 04/27/20 18:45 04/27/20 18:54 DC Lactobacillus Acidophilus (Bacid) 1 ea WMHS PO 04/30/20 18:00 05/01/20 08:46 Levothyroxine Sodium (Synthroid) 88 mcg DAILY@06 PO 04/28/20 06:00 05/01/20 05:27 Lisinopril (Prinivil) 2.5 mg DAILY PO 04/28/20 09:00 04/30/20 10:31 DC 04/30/20 08:30 Lisinopril (Prinivil) 5 mg DAILY PO 05/01/20 09:00 05/01/20 05:28 Metoprolol Tartrate (Lopressor) 25 mg BID PO 04/29/20 10:15 05/01/20 08:46 Multivitamins (Theragram-M) 1 tab DAILY PO 04/28/20 09:00 05/01/20 08:46 Pantoprazole Sodium (Protonix) 40 mg DAILY PO 04/28/20 09:00 05/01/20 08:46 Senna (Senokot) 1 tab QHS PO 04/27/20 21:00 04/29/20 20:06 Simvastatin (Zocor) 40 mg QHS PO 04/27/20 21:00 04/30/20 20:20 Vitamin D (Vitamin D) 1,000 units DAILY PO 04/28/20 09:00 05/01/20 08:46 Allergies Coded Allergies: No Known Allergies (Unverified , 01/29/18) Ivette David MD May 01, 2020 12:09
[2020-05-01 14:00] VITALS: BP 140/81
[2020-05-01 20:00] VITALS: BP 163/74
[2020-05-01] MEDS: SENNA 8.6 MG TAB (SENOKOT) PO SCH (20:50)
[2020-05-01] MEDS: SIMVASTATIN 40 MG TAB PO SCH (20:50)
[2020-05-02 05:16] VITALS: BP 164/72
[2020-05-02] MEDS: LEVOTHYROXINE 88MCG TABLET (0.088 MG) PO SCH (05:30)
[2020-05-02] MEDS: LISINOPRIL *2.5 MG* TAB PO SCH (05:30)
[2020-05-02 08:25] VITALS: BP 116/59
[2020-05-02] MEDS: MULTIVITAMINS/MINERALS THERAP 1 TAB PO SCH (08:26)
[2020-05-02] MEDS: OYSTER SHELL CALCIUM 500 MG TAB PO SCH (08:26)
[2020-05-02] MEDS: PANTOPRAZOLE 40MG TAB (PROTONIX) PO SCH (08:26)
[2020-05-02] MEDS: VITAMIN D 1,000 INTERNATIONAL UNITS TABLET PO SCH (08:26)
[2020-05-02] MEDS: APIXABAN 5 MG TAB (ELIQUIS) PO SCH ×2 (08:26→20:25)
[2020-05-02] MEDS: CEPHALEXIN 500 MG CAP PO SCH ×4 (08:26→20:24)
[2020-05-02] MEDS: METOPROLOL TART 25 MG TABLET PO SCH ×2 (08:27→20:26)
[2020-05-02] MEDS: REMEDY PHYTOPLEX Z-GUARD PASTE 113GM TUBE (FROM STOREROOM PRODUCT) TOP SCH ×3 (08:27→20:25)
[2020-05-02] MEDS: DOCUSATE SODIUM 100MG CAPSULE PO SCH ×2 (08:27→20:25)
[2020-05-02] MEDS: ASPIRIN 81 MG ENTERIC TAB PO SCH (08:27)
[2020-05-02] MEDS: LACTOBACILLUS ACIDOPHILUS CAP (BACID) PO SCH ×4 (08:27→20:24)
[2020-05-02 14:00] VITALS: BP 129/68
[2020-05-02 20:00] VITALS: BP 145/88
[2020-05-02] MEDS: SIMVASTATIN 40 MG TAB PO SCH (20:25)
[2020-05-02] MEDS: SENNA 8.6 MG TAB (SENOKOT) PO SCH (20:25)
[2020-05-03] MEDS: LEVOTHYROXINE 88MCG TABLET (0.088 MG) PO SCH (06:00)
[2020-05-03 06:04] VITALS: BP 146/74
[2020-05-03 06:35] LABS: BASO # 0.1 10^3/uL (0.0-0.2); EOS # 0.3 10^3/uL (0.0-0.5); EOS % 5.2 % (0.0-3.0); HEMATOCRIT 35.6 % (36.0-47.0); HEMOGLOBIN 11.5 g/dl (12.0-15.5); LYMPH # 2.6 10^3/uL (1.5-5.0); LYMPH % 42.5 % (24.0-44.0); MEAN CORPUSCULAR HEMOGLOBIN 33.1 pg (27.0-33.0); MEAN CORPUSCULAR HGB CONC 32.3 g/dl (32.0-36.5); MEAN CORPUSCULAR VOLUME 102.6 fl (80.0-96.0); MONO # 0.7 10^3/uL (0.0-0.8); MONO % 10.7 % (2.0-8.0); NEUTROPHILS # 2.5 10^3/uL (1.5-8.5); NEUTROPHILS % 40.3 % (36.0-66.0); PLATELET COUNT, AUTOMATED 146 10^3/uL (150-450); RED BLOOD COUNT 3.47 10^6/uL (4.00-5.40); WHITE BLOOD COUNT 6.2 10^3/uL (4.0-10.0)
[2020-05-03 07:02] LABS: CALCIUM LEVEL 8.8 MG/DL (8.8-10.2); CREATININE FOR GFR 1.21 MG/DL (0.55-1.30); GLOMERULAR FILTRATION RATE 45.6 (>32); POTASSIUM SERUM 4.4 MEQ/L (3.5-5.1)
[2020-05-03] MEDS: LACTOBACILLUS ACIDOPHILUS CAP (BACID) PO SCH ×4 (10:33→20:12)
[2020-05-03] MEDS: CEPHALEXIN 500 MG CAP PO SCH ×4 (10:33→20:11)
[2020-05-03] MEDS: VITAMIN D 1,000 INTERNATIONAL UNITS TABLET PO SCH (10:33)
[2020-05-03] MEDS: ASPIRIN 81 MG ENTERIC TAB PO SCH (10:33)
[2020-05-03] MEDS: LISINOPRIL *2.5 MG* TAB PO SCH (10:33)
[2020-05-03] MEDS: PANTOPRAZOLE 40MG TAB (PROTONIX) PO SCH (10:33)
[2020-05-03] MEDS: DOCUSATE SODIUM 100MG CAPSULE PO SCH ×2 (10:34→20:12)
[2020-05-03] MEDS: OYSTER SHELL CALCIUM 500 MG TAB PO SCH (10:34)
[2020-05-03] MEDS: METOPROLOL TART 25 MG TABLET PO SCH ×2 (10:34→20:12)
[2020-05-03] MEDS: MULTIVITAMINS/MINERALS THERAP 1 TAB PO SCH (10:34)
[2020-05-03] MEDS: REMEDY PHYTOPLEX Z-GUARD PASTE 113GM TUBE (FROM STOREROOM PRODUCT) TOP SCH ×3 (10:38→20:12)
[2020-05-03 14:00] VITALS: BP 137/79
[2020-05-03] MEDS: SIMVASTATIN 40 MG TAB PO SCH (20:12)
[2020-05-03] MEDS: SENNA 8.6 MG TAB (SENOKOT) PO SCH (20:12)
[2020-05-03 20:20] VITALS: BP 133/77
[2020-05-04] MEDS: LEVOTHYROXINE 88MCG TABLET (0.088 MG) PO SCH (05:42)
[2020-05-04 06:03] VITALS: BP 146/68
[2020-05-04] MEDS: MULTIVITAMINS/MINERALS THERAP 1 TAB PO SCH (08:14)
[2020-05-04] MEDS: DOCUSATE SODIUM 100MG CAPSULE PO SCH ×2 (08:14→08:20)
[2020-05-04] MEDS: PANTOPRAZOLE 40MG TAB (PROTONIX) PO SCH (08:14)
[2020-05-04] MEDS: OYSTER SHELL CALCIUM 500 MG TAB PO SCH (08:14)
[2020-05-04] MEDS: CEPHALEXIN 500 MG CAP PO SCH ×2 (08:14→12:02)
[2020-05-04] MEDS: VITAMIN D 1,000 INTERNATIONAL UNITS TABLET PO SCH (08:14)
[2020-05-04] MEDS: LACTOBACILLUS ACIDOPHILUS CAP (BACID) PO SCH ×2 (08:14→11:43)
[2020-05-04] MEDS: ASPIRIN 81 MG ENTERIC TAB PO SCH (08:14)
[2020-05-04 08:15] VITALS: BP 146/68
[2020-05-04] MEDS: METOPROLOL TART 25 MG TABLET PO SCH (08:15)
[2020-05-04] MEDS: REMEDY PHYTOPLEX Z-GUARD PASTE 113GM TUBE (FROM STOREROOM PRODUCT) TOP SCH (08:15)
[2020-05-04] MEDS ORDERED: lisinopriL 5 MG TAB PO SCH (09:00)
--- NOTE | 2020-05-04 09:50 | IPNPDOC ---
PM&R Progress Note DATE OF SERVICE: Apr 30, 2020 Plate Former Progress Note Subjective: Patient stating her left inner elbow feels sore and that she has a lump in the elbow crease where prior IV was and feels additional lumps in her upper arm. REVIEW OF SYSTEMS: The following is a completed review of systems and has been r eviewed. Review of systems otherwise unremarkable. PAIN: Patient self reports no pain EYES: No recent vision changes EARS, NOSE, & THROAT: +dysphagia CARDIOVASCULAR: denies chest pain or palpitations PULMONARY: Denies shortness of breath GASTROINTESTINAL: Denies constipation/diarrhea GENITOURINARY: denies dysuria MUSCULOSKELETAL: generalized weakness NEUROLOGICAL:dysphagia and mild aphasia. HEMATOLOGICAL:denies easy bruising SKIN: no rash PSYCHIATRIC: Unremarkable All other review of systems found to be negative. PHYSICAL EXAMINATION: VITAL SIGNS: Please see below. GENERAL: Pleasant and cooperative. No acute distress. HEENT: PERRL. Extraocular movements intact. Clear conjunctiva, slight right sided facial droop CARDIOVASCULAR: Regular rate and rhythm. No murmurs, rubs, or gallops LUNGS: Clear to auscultation bilaterally. No wheezes. No rhonchi ABDOMEN: Soft, nontender, nondistended. Positive bowel sounds. Normal active bowel sounds NEUROLOGICAL: Alert and oriented times three. Cranial nerves II through XII grossly intact. Sensation grossly intact -no dysmetria, mild right sided pronator drift, +mild expressive aphasia, visual shah intact -no clonus/ghotra's EXTREMITIES: 5\5 strength bilateral upper extremities. 5\5 strength right knee extension/flexion/ ankle DF/PF (hip flexion 4/5 chronic), 5/5 strength in left lower extremity. LUE- +warmth and tenderness to palpation in antecubital fossa with raised lump/furuncle at site of previous IV access SKIN: chest wall loop recorder incision ASSESSMENT:79-year-old F with past medical history of HTN who presents status post stroke PLAN: 1.Rehab- PT/OT advance mobility and ADLs, strengthen/stretch/maintain ROM all 4l limbs, ambulating further distances -[employer]- c/u therapy for dysphagia 2. Neuro- s/p acute lacunar infarcts in the left middle frontal lobe at the level of the centrum semiovale, c/u ASA and statin for secondary stroke p revention- LOOP recorder in place to check for Afib -+PFO on recent CARYN, f/u with cardiology at [facility]- LE Dopplers negative for DVT performed at [facility] 04-27-20 3. CArdiac- hx of CAD with CABG, c/u ASA and lisinopril -HLD- c/u zocor -medicine consulted to assist in overall management 4. Endo- hx of hypothyroidism c/u synthroid 5. GI ppx-protonix 6. DVT ppx - teds and heparin -will order LUE Doppler to r/o DVT, warm compress for suspected phlebitis, concern for cellulitis/furuncle as well and will start Keflex 7. pain- tylenol prn 8. Dispo- tbd Allergies Coded Allergies: No Known Allergies (Unverified , 01/29/18) Vital Signs Vital Signs Date Time Temp Pulse Resp B/P (MAP) Pulse Ox O2 Delivery O2 Flow Rate FiO2 05/04/20 08:15 69 146/68 05/04/20 06:03 97.4 18 99 Room Air Current Medications Current Medications Current Medications Medications (Trade) Dose Ordered Sig/Gaurang Route PRN Reason Start Time Stop Time Status Last Admin Dose Admin Acetaminophen (Tylenol Tab) 650 mg Q4HP PRN PO fever/MILD PAIN (PS 1-4) 04/27/20 14:00 Apixaban (Eliquis) 5 mg BID PO 05/08/20 09:00 05/03/20 10:15 DC Apixaban (Eliquis) 10 mg BID PO 05/01/20 09:00 05/03/20 10:15 DC 05/02/20 20:25 Aspirin (Ecotrin) 81 mg DAILY PO 04/28/20 09:00 05/04/20 08:14 Bisacodyl (Dulcolax Suppository) 10 mg DAILYPRN PRN NE CONSTIPATION 04/27/20 14:00 Bisacodyl (Dulcolax Tab) 5 mg DAILYPRN PRN PO CONSTIPATION 04/27/20 14:00 Calcium Carbonate (Oscal) 500 mg DAILY PO 04/28/20 09:00 05/04/20 08:14 Cephalexin Monohydrate (Keflex) 500 mg QID PO 04/30/20 17:00 05/05/20 13:01 05/04/20 08:14 Docusate Sodium (Colace) 100 mg BID PO 04/27/20 21:00 05/03/20 20:12 Heparin Sodium (Porcine) (Heparin) 5,000 units Q12H SC 04/28/20 09:00 05/01/20 07:45 DC 04/30/20 20:22 Home Med (Med Rec Complete!) ASDIRECTED XX 04/27/20 18:45 04/27/20 18:54 DC Lactobacillus Acidophilus (Bacid) 1 ea WMHS PO 04/30/20 18:00 05/04/20 08:14 Levothyroxine Sodium (Synthroid) 88 mcg DAILY@06 PO 04/28/20 06:00 05/04/20 05:42 Lisinopril (Prinivil) 2.5 mg DAILY PO 04/28/20 09:00 04/30/20 10:31 DC 04/30/20 08:30 Lisinopril (Prinivil) 5 mg DAILY PO 05/01/20 09:00 05/03/20 10:40 DC 05/03/20 10:33 Lisinopril (Prinivil) 5 mg DAILY PO 05/04/20 09:00 05/04/20 08:14 Metoprolol Tartrate (Lopressor) 25 mg BID PO 04/29/20 10:15 05/04/20 08:15 Multivitamins (Theragram-M) 1 tab DAILY PO 04/28/20 09:00 05/04/20 08:14 Pantoprazole Sodium (Protonix) 40 mg DAILY PO 04/28/20 09:00 05/04/20 08:14 Senna (Senokot) 1 tab QHS PO 04/27/20 21:00 05/03/20 20:12 Simvastatin (Zocor) 40 mg QHS PO 04/27/20 21:00 05/03/20 20:12 Vitamin D (Vitamin D) 1,000 units DAILY PO 04/28/20 09:00 05/04/20 08:14 GAY SHAFFER MD May 04, 2020 09:50
[2020-05-04] MEDS ORDERED: RISATAB3 PO (09:57)
[2020-05-04] MEDS ORDERED: SIMV40TA20 PO (09:57)
[2020-05-04] MEDS ORDERED: CEPH500C PO (09:57)
[2020-05-04] MEDS ORDERED: LEVO88TA3 PO (09:57)
[2020-05-04] MEDS ORDERED: METO1TAB87 PO (09:57)
[2020-05-04] MEDS ORDERED: ASPI81CH33 PO (09:57)
--- NOTE | 2020-05-04 10:22 | PMRDS ---
NAME: ANURAG HIDALGO [facility] WT ID#: [id number] JOB: [id number] RENARD: 04/27/2020 ACCT: [id number] DOCTOR: GAY SHAFFER MD PMR DISCHARGE SUMMARY DATE OF ADMISSION: 04/27/2020 DATE OF DISCHARGE: 05/04/2020 CHIEF COMPLAINT/DISCHARGE DIAGNOSIS: Stroke. HISTORY OF PRESENT ILLNESS: This is an 79-year-old female with a past medical history of hyperlipidemia, hypertension, CAD status post CABG, hypothyroidism, neuropathy, breast cancer status post radiation, and colon cancer status post hemicolectomy who presented to [facility] ED on 04/24/2020 with dysarthria. CTH was negative for acute hemorrhage, and CTA head and neck showed "multiple hypoattenuating lesions within bilateral subinsular region, right basal ganglia, and right frontal subcortical white matter and left frontal regions which are most consistent with a subacute or chronic lacunar infarctsno occlusion or significant stenosis in the arteries of the neck." Patient received TPA. Follow up MRI showed "acute lacunar infarcts in the left middle frontal lobe at the level of the centrum semiovaleold lacunar infarcts in the basal ganglia bilaterally." CARYN with bubble study showed "patent foramen ovale with grade 1 right to left shunt." Doppler venous study 04/27/2020 was negative for DVTs, and she was evaluated by Cardiology who placed a loop recorder for her cryptogenic stroke on 04/26/2020. She was maintained on aspirin and statin for secondary stroke prevention, found to have mobility and ADL impairments, placed on a dysphagia diet, and deemed medically appropriate for discharge to ARU. PAST MEDICAL HISTORY: As per HPI. HOSPITAL COURSE: Patient was admitted and enrolled in a comprehensive PT, OT, speech, and language pathology program. She received 24 hour nursing supervision, and weekly team meetings were held to discuss her progress. During her hospital course, the patient was diagnosed with left upper extremity superficial venous thrombosis for which she was treated ultimately with warm compresses. She was also treated for soft tissue infection in her left upper extremity with Keflex with overall improvements in her symptoms. Her lisinopril was held due to slight decrease in her kidney function, and metoprolol was added to her blood pressure regimen. She was deemed medically and functionally stable having made significant gains in therapy and determined to be safe to return home. DISCHARGE MEDICATIONS: As per instructions. FUNCTIONAL HISTORY: On discharge, patient was modified independent, independent for all functional transfers, ambulation, dressing, and stairs. Thank you for this referral.
[2020-05-08] MEDS ORDERED: APIXABAN 5 MG TAB (ELIQUIS) PO SCH (09:00)
== END 2020-05-04 15:33 | disposition home or self-care (01) | DRG 57 ==
LOC: M PM&R 17:42
PROVIDERS: ADMIT Physical Medicine & Rehabilitation; ATTEND Physical Medicine & Rehabilitation
DX: I69.391 Dysphagia following cerebral infarction (principal); I82.612 Acute embolism and thrombosis of superficial veins of left upper extremity; R13.10 Dysphagia, unspecified; I69.320 Aphasia following cerebral infarction; I69.322 Dysarthria following cerebral infarction; I69.392 Facial weakness following cerebral infarction; E03.9 Hypothyroidism, unspecified; G62.9 Polyneuropathy, unspecified; E78.5 Hyperlipidemia, unspecified; I10 Essential (primary) hypertension; R53.1 Weakness; I25.10 Atherosclerotic heart disease of native coronary artery without angina pectoris; Z95.1 Presence of aortocoronary bypass graft; Z85.3 Personal history of malignant neoplasm of breast; Z85.038 Personal history of other malignant neoplasm of large intestine; Z92.3 Personal history of irradiation; Z90.49 Acquired absence of other specified parts of digestive tract; Z74.09 Other reduced mobility; Z74.1 Need for assistance with personal care; Z98.41 Cataract extraction status, right eye; Z79.82 Long term (current) use of aspirin; Z79.899 Other long term (current) drug therapy

== ENCOUNTER → 2020-06-07 | Outpatient (CLI) | payer MEDICARE ==
[~2020-06-07] MED LIST changes: +ASPI81CH33 PO; +ATOR40TA75 PO; +CEPH500C PO; +ENOX40IN3 SC; +LIDO1PAD TOP; +LISI-898 PO; +METO1TAB87 PO; +MULT-90 PO; +RISATAB3 PO
== END ==
LOC: M PLALAB 09:35
PROVIDERS: ATTEND Surgery
DX: Z13.79 Encounter for other screening for genetic and chromosomal anomalies (principal)

== ENCOUNTER → 2020-06-17 | Outpatient (CLI) | payer MEDICARE ==
--- NOTE | 2020-06-17 17:38 | REP ---
INDICATION: C50.911 MUCINOUS CA RT BREAST,LT AXILLARY lymph NODE. COMPARISON: None. TECHNIQUE: Real-time sonographic evaluation of left axilla and midline chest performed. FINDINGS: At the site of the palpable lump over the sternum there is a cyst with wall thickening and internal septations measuring 1.3 x 0.5 x 1.1 cm. In the left axilla multiple morphologically normal appearing lymph nodes are seen, the largest measures 7 x 5 x 17 mm. IMPRESSION: In the left axilla multiple morphologically normal appearing lymph nodes are seen which are not significantly enlarged. Clinical correlation and follow-up recommended. At the site of the palpable lump overlying the sternum there is a cyst with wall thickening and internal septations measuring 1.3 x 0.5 x 1.1 cm. If this is deemed clinically suspicious then recommend ultrasound-guided sampling to rule out cystic neoplasm. <Electronically signed by Miles Scales > 06/17/20 1314
--- NOTE | 2020-07-12 11:51 | REPMRS ---
Patient History Malignant radio exam breast specimen of the right breast, November 11, 2019. Malignant US guided breast biopsy. of the right breast, September 24, 2019. Cyst with septations seen at lump on sternum - 1.3 x 0.5 x 1.1 cm. Left axilla scanned. Multiple nodes seen - 0.7 x 0.5 x 1.7 cm Performed by: Amy Kay [employer] Breast Ultrasound [employer]: Left Breast - June 17, 2020 - Exam #: [id number] Technologist: Amy Kay, [employer] FINDINGS: At the site of the palpable lump over the sternum there is a cyst with wall thickening and internal septations measuring 1.3 x 0.5 x 1.1 cm. In the left axilla multiple morphologically normal appearing lymph nodes are seen, the largest measures 7 x 5 x 17 mm. Recommendation Needle localization and biopsy. IMPRESSION: In the left axilla multiple morphologically normal appearing lymph nodes are seen which are not significantly enlarged. Clinical correlation and follow-up recommended. At the site of the palpable lump overlying the sternum there is a cyst with wall thickening and internal septations measuring 1.3 x 0.5 x 1.1 cm. If this is deemed clinically suspicious then recommend ultrasound-guided sampling to rule out cystic neoplasm. Electronically Signed By: Miles Scales MD 07/12/20 [id number]
== END ==
LOC: M WHC 12:46
PROVIDERS: ATTEND Surgery
DX: R22.2 Localized swelling, mass and lump, trunk (principal); C50.911 Malignant neoplasm of unspecified site of right female breast

== ENCOUNTER → 2020-07-01 | Outpatient (REF) | payer MEDICARE | LOC: M SFHCWAGY 15:08 | PROVIDERS: ATTEND Surgery | DX: L72.11 Pilar cyst (principal) ==

== ENCOUNTER → 2020-07-21 | Outpatient (CLI) | payer MEDICARE ==
--- NOTE | 2020-07-21 11:11 | RADONC ---
Radiation Oncology Hx/FUP Radiation Oncology Hx/FUP Date of Service: July 21, 2020 Pt Identifier Shilpi Farrell is a 80 year old female seen for a followup visit today at the department of radiation oncology for a history of right breast cancer pT1cN0(sn)M0 ER/[place]+ HER2- Grade 2 stage IA. She underwent lumpectomy and SLNB on 11/11/19 margins were negative. She then underwent adjuvant partial breast radiation 40 Gy in 15 fractions completed on 01/21/20. She has continued on an AI with Dr. Saucedo. Diagnosis/Treatment History Oncologic History As above. Recent data: 06/17/20 Left breast US FINDINGS: At the site of the palpable lump over the sternum there is a cyst with wall thickening and internal septations measuring 1.3 x 0.5 x 1.1 cm. In the left axilla multiple morphologically normal appearing lymph nodes are seen, the largest measures 7 x 5 x 17 mm. Recommendation Needle localization and biopsy. IMPRESSION: In the left axilla multiple morphologically normal appearing lymph nodes are seen which are not significantly enlarged. Clinical correlation and follow-up recommended 07/02/20 Left breast biopsy: Benign cyst with calcifications Interval History Shilpi reports she had a stroke with some residual right sided weakness over the winter. She has recovered from this largely, although she still has some mild word finding difficulties and RLE weakness from [id number]. At last follow up with Dr. Gates she notes a sub-sternal lump on the left, which appeared suspicious and so was biopsied, fortunately it was a pilar cyst. Shilpi has no skin concerns today. She is due for mammograms later this month. She overall feels well, has been gaining weight. Appetite and energy good. She has no pain complaints today. Current Therapy AI (Dr. Saucedo) Stage Right lower outer breast cancer pT1cN0(sn)M0 ER/[place]+ HER2- Grade 2 Stage IA Social History: Non-smoker Does not drink Allergies / Meds Allergies: Coded Allergies: No Known Allergies (Unverified , 01/29/18) Home Meds Active Scripts Anastrozole (Anastrozole) 1 Mg Tablet, 1 TAB PO DAILY MDD 1 MG for 90 Days, #30 TAB 3 Refills Prov:МАРИЯ SAUCEDO MD 05/21/20 Metoprolol Tartrate (Metoprolol Tartrate) 25 Mg Tablet, 25 MG PO BID, #60 TAB Prov:GAY SHAFFER MD 05/04/20 Aspirin (Aspirin) 81 Mg Tab.chew, 81 MG PO DAILY, #30 TABS Prov:GAY SHAFFER MD 05/04/20 Simvastatin (Simvastatin) 40 Mg Tab, 40 MG PO DAILY, #30 TAB Prov:GAY SHAFFER MD 05/04/20 Levothyroxine Sodium (LEVOTHYROXINE SODIUM) 88 Mcg Tab, 88 MCG PO DAILY, #30 TAB Prov:GAY SHAFFER MD 05/04/20 Reported Medications Multivitamin (Multivitamin) 1 Each Tablet, 1 EACH PO DAILY, TAB 04/27/20 Cholecalciferol (Vitamin D3) (Vitamin D3) 25 Mcg Capsule, 25 MCG PO DAILY, CAP 11/10/19 Acetaminophen (Tylenol) 325 Mg Tablet, 650 MG PO Q4-6HP PRN for PAIN OR FEVER, TAB 08/07/19 Nitroglycerin (Nitroglycerin) 0.4 Mg Sub, 0.4 MG SL ASDIRECTED for chest pain, #25 TAB 1st sign of attack; may repeat every 5 mins; if pain persists after 3 in 15 min, medical attention is recommended 01/29/18 Review of Systems Review of Systems Constitutional: Denies: Chills, Fever, Fatigue Eyes: Denies: Pain HEENT: Denies: Head Aches Skin: Denies: Rash Breast: Denies: New Breast Lumps / Masses, Nipple Retraction, Nipple Discharge, Breast Skin Changes, Breast Pain or Tenderness, Other Breast Complaints Pulmonary: Denies: Dyspnea Cardiovascular: Denies: Chest Pain Gastrointestinal: Denies: Abdominal Pain Musculoskeletal: Denies: Neck pain, Back pain Neurological: Reports: Weakness; Denies: Numbness Psych: Reports: Mood Normal Physical Examination Vital Signs Wt 180 lbs T 97.1 P 64 RR 16 BP 143/79 O2 98% Pain 0 Fatigue 0 General Exam: Positive: Alert, Cooperative, No Acute Distress Eye Exam: Positive: PERRLA, EOMI ENT EXAM: Positive: Atraumatic Neck Exam: Positive: Supple Chest Exam: Positive: Clear to auscultation Heart Exam: Positive: Rate Normal Breast Exam: Positive: Symmetric Bilaterally (Ptosis); Negative: Lumps or Masses (Palpable fibrosis at surgical site right breast. No concerning right or left breast or axillary lumps or masses. ), Skin Changes Abdomen Exam: Positive: Soft Extremity Exam: Negative: Edema Skin Exam: Positive: Nl turgor and temperature Neuro Exam: Positive: Normal Gait, Normal Speech, Cranial Nerves 3-12 NL Psych Exam: Positive: Mental status NL Diagnostic and Laboratory Diagnostic Review Radiologic images, relevant labs and pathology reports were personally reviewed and discussed with Ms. Farrell. Assessment and Plan Impression Assessment Ms. Farrell is a 80 year old female with a history of right breast cancer pT1cN0(sn)M0 ER/[place]+ HER2- Grade 2 stage IA. She underwent lumpectomy and SLNB on 11/11/19 margins were negative. She then underwent adjuvant partial breast radiation 40 Gy in 15 fractions completed on 01/21/20. She has continued on an AI with Dr. Saucedo. She is doing well, unfortunately suffered a stroke over the winter but has recovered largely to baseline. On exam today she has no concerning breast lesions. She is due for mammography this month and has follow up established with Dr. Saucedo and Dr. Gates. She has no particular sequelae of radiation to the right breast except for palpa ble asymptomatic fibrosis at the lumpectomy site. As she is doing well and is so well followed I will see her again in 1 year. Performance Status ECOG 1 Plan Follow up in 12 months Ms. Farrell was encouraged to call with questions or concerns in the interim period. Billing Statement Total time of [22] minutes was spent preparing for the visit [1], obtaining HPI [5], examining the patient [2], reviewing diagnostic tests [2], discussing ma nagement options [5], coordinating care [0], and writing this note [7]. SCARLETT FUENTES MD July 21, 2020 10:44
== END ==
LOC: M ONCR 08:50
PROVIDERS: ATTEND General Practice
DX: C50.311 Malignant neoplasm of lower-inner quadrant of right female breast (principal)

== ENCOUNTER → 2020-08-06 | Outpatient (CLI) | payer MEDICARE ==
--- NOTE | 2020-08-06 14:57 | REP ---
INDICATION: C50.911 MUCINOUS CARCINOMA OF RIGHT BREAST; C50.911 MUCINOUS CA OF RIGHT BREAST. COMPARISON: Comparison mammography August 05, 2019 and December 06, 2016. Comparison sonography August 13, 2019 and September 22, 2019. TECHNIQUE: Routine views of the right and left breast are obtained. 3D tomography is carried out. Targeted right breast sonography is performed. FINDINGS: The previously noted right inferior medial breast mass is been removed. There are multiple surgical clips in the right medial breast. Post treatment changes including dermal thickening are seen. There is a loop recorder visible at the edge of the field of view medially on the left. There is a 3.3 x 3.9 cm area of fat necrosis versus seroma at the excision or biopsy site in the right breast. An area of fat necrosis is favored since there are lobules of fat density material within the lesion seen mammographically.. The left breast, and the remainder of the right breast are mammographically unremarkable. The Volpara volumetric breast density pattern is B. Targeted right breast sonography: Sonography demonstrates a complex fluid collection at the lumpectomy site measuring 2.7 x 1.7 x 3.9 cm, 4 o'clock and position, less than a cm from the nipple. This is felt to account for the mixed density well-circumscribed lesion seen mammographically. Within the cystic lesion are 1 or 2 hyperechoic in a nodules which are felt to correspond to lobules of fat as seen on the mammogram. No other sonographic findings.. IMPRESSION: BIRADS/ACR category 2 benign mammographic and right breast sonographic findings. 3.9 cm complex fluid collection representing postoperative fat necrosis in the right breast at the lumpectomy site. Post treatment changes. This mammogram was interpreted with the aid of an FDA-approved computer-aided detection system. The patient states she had a clinical breast exam in June of 2020. The patient letter being requested is M2. RECOMMENDATION: Repeat screening mammography recommended 1 year (for women over 40). <Electronically signed by Antonio Del Angel > 08/06/20 0707
== END ==
LOC: M WHC 10:49
PROVIDERS: ATTEND Surgery
DX: C50.911 Malignant neoplasm of unspecified site of right female breast (principal); N63.14 Unspecified lump in the right breast, lower inner quadrant
CPT/HCPCS: 76642; 77066; G0279

== ENCOUNTER 2021-06-05 11:30 | Observation (INO) | payer MEDICARE ==
[~2021-06-05] VITALS: Ht 165.1 cm; Wt 78.1 kg
[~2021-06-05 11:30] MED LIST changes: -D31000TA2 PO; -LISI-898 PO; -LISI2.5T2 PO; +LISI2.5T9 PO; +LISI5TAB11 PO; +VITA100093 PO
[2021-06-05] MEDS ORDERED: ISOVUE-370 76% 100ML VIAL As Ordered ONE (11:59)
[2021-06-05 12:05] LABS: BASO # 0.1 10^3/uL (0.0-0.2); BASO % 1.3 % (0.0-1.0); EOS % 14.8 % (0.0-3.0); HEMATOCRIT 39.4 % (36.0-47.0); HEMOGLOBIN 12.9 g/dl (12.0-15.5); LYMPH # 2.6 10^3/uL (1.5-5.0); LYMPH % 36.9 % (24.0-44.0); MEAN CORPUSCULAR HEMOGLOBIN 33.5 pg (27.0-33.0); MEAN CORPUSCULAR HGB CONC 32.7 g/dl (32.0-36.5); MEAN CORPUSCULAR VOLUME 102.3 fl (80.0-96.0); MONO # 0.6 10^3/uL (0.0-0.8); MONO % 8.4 % (2.0-8.0); NEUTROPHILS # 2.7 10^3/uL (1.5-8.5); NEUTROPHILS % 38.5 % (36.0-66.0); PLATELET COUNT, AUTOMATED 169 10^3/uL (150-450); RED BLOOD COUNT 3.85 10^6/uL (4.00-5.40); WHITE BLOOD COUNT 6.9 10^3/uL (4.0-10.0)
[2021-06-05] MEDS ORDERED: ECOT81TA5 PO (12:11)
[2021-06-05] MEDS ORDERED: LISI2.5T9 PO (12:11)
[2021-06-05] MEDS ORDERED: CALC315T2 PO (12:11)
[2021-06-05 12:16] LABS: INR 0.95; PARTIAL THROMBOPLASTIN TIME 21.2 SECONDS (25.9-37.0); PROTHROMBIN TIME 13.1 SECONDS (12.7-14.5)
[2021-06-05 12:31] LABS: CK-MB VALUE MASS 1.4 NG/ML (<3.6); MB/CK RELATIVE INDEX 1.02 (< OR =4)
[2021-06-05] MEDS ORDERED: CLOPIDOGREL 75 MG TAB PO ONE (13:25)
[2021-06-05 13:33] LABS: RSV AMPLIFICATION NEGATIVE (NEGATIVE)
[2021-06-05] MEDS ORDERED: SYNT88TA2 PO (14:30)
[2021-06-05] MEDS ORDERED: METO25TA4 PO (14:30)
[2021-06-05] MEDS ORDERED: ACETAMINOPHEN TAB 650MG DOSE (2X325MG) PO PRN (14:40)
[2021-06-05] MEDS ORDERED: MAALOX 30 ML SUSP *UDC PO PRN (14:40)
[2021-06-05] MEDS ORDERED: SIMV40TA20 PO (14:43)
[2021-06-05] MEDS ORDERED: HOME MED LIST COMPLETE! XX SCH (14:45)
[2021-06-05] MEDS ORDERED: ACETAMINOPHEN TAB 650MG DOSE (2X325MG) PO ONE (14:55)
[2021-06-05 19:09] VITALS: BP 114/68
[2021-06-05] MEDS: DOCUSATE SODIUM 100MG CAPSULE PO SCH (20:22)
[2021-06-05] MEDS ORDERED: NITROGLYCERIN 0.4 MG SUBL TABLET SL PRN (21:10)
[2021-06-05 22:00] VITALS: BP 158/72
[2021-06-06] MEDS: LEVOTHYROXINE 88MCG TABLET (0.088 MG) PO SCH (05:19)
[2021-06-06 06:00] VITALS: BP 151/72
[2021-06-06 06:07] LABS: BASO # 0.1 10^3/uL (0.0-0.2); BASO % 1.1 % (0.0-1.0); EOS # 0.9 10^3/uL (0.0-0.5); EOS % 12.9 % (0.0-3.0); HEMATOCRIT 36.2 % (36.0-47.0); HEMOGLOBIN 12.1 g/dl (12.0-15.5); LYMPH # 3.4 10^3/uL (1.5-5.0); LYMPH % 48.4 % (24.0-44.0); MEAN CORPUSCULAR HEMOGLOBIN 33.5 pg (27.0-33.0); MEAN CORPUSCULAR HGB CONC 33.4 g/dl (32.0-36.5); MEAN CORPUSCULAR VOLUME 100.3 fl (80.0-96.0); MONO # 0.5 10^3/uL (0.0-0.8); MONO % 7.3 % (2.0-8.0); NEUTROPHILS # 2.1 10^3/uL (1.5-8.5); NEUTROPHILS % 30.2 % (36.0-66.0); PLATELET COUNT, AUTOMATED 152 10^3/uL (150-450); RED BLOOD COUNT 3.61 10^6/uL (4.00-5.40)
[2021-06-06 06:30] LABS: HEMOGLOBIN A1c 5.7 %
[2021-06-06 06:42] LABS: CALCIUM LEVEL 8.8 MG/DL (8.8-10.2); CHOLESTEROL RISK RATIO 2.354 (<5); CREATININE FOR GFR 1.03 MG/DL (0.55-1.30); GLOMERULAR FILTRATION RATE 54.7 (>32); MAGNESIUM LEVEL 2.3 MG/DL (1.8-2.4); POTASSIUM SERUM 4.5 MEQ/L (3.5-5.1)
[2021-06-06] MEDS: DOCUSATE SODIUM 100MG CAPSULE PO SCH ×2 (09:22→21:16)
[2021-06-06] MEDS: ASPIRIN 81MG ENTERIC TABLET PO SCH (09:22)
[2021-06-06] MEDS: CLOPIDOGREL 75 MG TAB PO SCH (09:22)
[2021-06-06] MEDS: METOPROLOL TART 25 MG TABLET PO SCH ×2 (09:23→21:16)
[2021-06-06] MEDS: SIMVASTATIN 40 MG TAB PO SCH (09:23)
[2021-06-06] MEDS: LISINOPRIL *2.5 MG* TAB PO SCH (09:23)
[2021-06-06 14:00] VITALS: BP 126/58
[2021-06-06] MEDS: ANASTRAZOLE 1MG TABLET (PATIENT'S OWN MED) PO SCH (14:43)
[2021-06-07] VITALS: BP 151/72
[2021-06-07] MEDS: LEVOTHYROXINE 88MCG TABLET (0.088 MG) PO SCH (05:50)
[2021-06-07 06:00] VITALS: BP 140/71
[2021-06-07 06:12] LABS: BASO # 0.1 10^3/uL (0.0-0.2); BASO % 0.7 % (0.0-1.0); EOS % 13.5 % (0.0-3.0); HEMATOCRIT 36.7 % (36.0-47.0); LYMPH % 41.1 % (24.0-44.0); MEAN CORPUSCULAR HEMOGLOBIN 33.1 pg (27.0-33.0); MEAN CORPUSCULAR HGB CONC 32.7 g/dl (32.0-36.5); MEAN CORPUSCULAR VOLUME 101.4 fl (80.0-96.0); MONO # 0.7 10^3/uL (0.0-0.8); MONO % 9.4 % (2.0-8.0); NEUTROPHILS # 2.6 10^3/uL (1.5-8.5); NEUTROPHILS % 35.2 % (36.0-66.0); PLATELET COUNT, AUTOMATED 155 10^3/uL (150-450); RED BLOOD COUNT 3.62 10^6/uL (4.00-5.40); WHITE BLOOD COUNT 7.3 10^3/uL (4.0-10.0)
[2021-06-07 06:33] LABS: CALCIUM LEVEL 9.1 MG/DL (8.8-10.2); GLOMERULAR FILTRATION RATE 56.6 (>32); MAGNESIUM LEVEL 2.2 MG/DL (1.8-2.4); POTASSIUM SERUM 4.4 MEQ/L (3.5-5.1)
[2021-06-07] MEDS: ANASTRAZOLE 1MG TABLET (PATIENT'S OWN MED) PO SCH (09:22)
[2021-06-07] MEDS: DOCUSATE SODIUM 100MG CAPSULE PO SCH (09:23)
[2021-06-07] MEDS: ASPIRIN 81MG ENTERIC TABLET PO SCH (09:23)
[2021-06-07] MEDS: CLOPIDOGREL 75 MG TAB PO SCH (09:23)
[2021-06-07] MEDS: SIMVASTATIN 40 MG TAB PO SCH (09:23)
[2021-06-07 09:26] VITALS: BP 138/70
[2021-06-07] MEDS: METOPROLOL TART 25 MG TABLET PO SCH (09:26)
[2021-06-07] MEDS: LISINOPRIL *2.5 MG* TAB PO SCH (09:26)
[2021-06-07] MEDS ORDERED: CLOP75TA2 PO (11:58)
== END 2021-06-07 14:52 | disposition home or self-care (01) ==
LOC: M ED 11:30 → M ED INP 11:31 → M MSPAV 18:58
PROVIDERS: ADMIT Family Medicine; ATTEND Internal Medicine Nephrology
DX: I63.9 Cerebral infarction, unspecified (principal); G93.89 Other specified disorders of brain; R29.700 NIHSS score 0; Z86.73 Personal history of transient ischemic attack (TIA), and cerebral infarction without residual deficits; I11.9 Hypertensive heart disease without heart failure; I25.10 Atherosclerotic heart disease of native coronary artery without angina pectoris; Z95.818 Presence of other cardiac implants and grafts; E78.5 Hyperlipidemia, unspecified; E03.9 Hypothyroidism, unspecified; K21.9 Gastro-esophageal reflux disease without esophagitis; C50.911 Malignant neoplasm of unspecified site of right female breast; M19.90 Unspecified osteoarthritis, unspecified site; Z85.038 Personal history of other malignant neoplasm of large intestine; Z92.21 Personal history of antineoplastic chemotherapy; Z92.3 Personal history of irradiation; Z90.49 Acquired absence of other specified parts of digestive tract; Z95.1 Presence of aortocoronary bypass graft; R53.1 Weakness; R47.81 Slurred speech; Z79.899 Other long term (current) drug therapy; Z79.02 Long term (current) use of antithrombotics/antiplatelets
CPT/HCPCS: 36415; 70450; 70496; 70498; 70551; 71045; 80047; 80048; 80061; 82550; 82553; 83036; 83735; 84484; 85025; 85610; 85730; 86850; 86900; 86901; 87631; 92526; 92610; 93005; 93041; 93306; 94760; 97161; 99285; G0378; Q9967

== ENCOUNTER → 2021-08-03 | Outpatient (CLI) | payer MEDICARE ==
[~2021-08-03] MED LIST changes: +CALC315T2 PO; +CLOP75TA2 PO; +METO25TA4 PO; +SYNT88TA2 PO
== END ==
LOC: M ONCR 08:19
PROVIDERS: ATTEND General Practice
DX: Z08 Encounter for follow-up examination after completed treatment for malignant neoplasm (principal); Z85.3 Personal history of malignant neoplasm of breast; Z79.899 Other long term (current) drug therapy; Z79.811 Long term (current) use of aromatase inhibitors; Z86.73 Personal history of transient ischemic attack (TIA), and cerebral infarction without residual deficits; Z92.3 Personal history of irradiation

== ENCOUNTER → 2021-08-08 | Outpatient (CLI) | payer MEDICARE | LOC: M WHC 10:55 | PROVIDERS: ATTEND Specialist | DX: Z12.31 Encounter for screening mammogram for malignant neoplasm of breast (principal) ==

== ENCOUNTER → 2021-11-03 | Outpatient (CLI) | payer MEDICARE | LOC: M WUC 13:09 | PROVIDERS: ATTEND Physician Assistant | DX: J20.9 Acute bronchitis, unspecified (principal) ==

== ENCOUNTER 2022-05-08 11:56 | Inpatient (IN) | payer MEDICARE ==
[~2022-05-08] VITALS: Ht 165.1 cm; Wt 91.7 kg
[2022-05-08] MEDS ORDERED: PANTOPRAZOLE 40MG VIAL IV ONE (13:05)
[2022-05-08 13:21] LABS: VENOUS BASE EXCESS -5.6 (-2.0-2.0); VENOUS HCO3 19.9 MEQ/L (23.0-27.0); VENOUS O2 SATURATION 67.7 % (60.0-80.0); VENOUS PARTIAL PRESSURE CO2 39.3 mmHg (38.0-50.0); VENOUS PARTIAL PRESSURE O2 39.3 mmHg (30.0-50.0); VENOUS PH 7.323 UNITS (7.330-7.430); VENOUS STANDARD HCO3 19.3 MEQ/L; VENOUS TOTAL CO2 21.1 MEQ/L (24.0-28.0)
[2022-05-08 13:25] LABS: BASO # 0.1 10^3/uL (0.0-0.2); BASO % 0.6 % (0.0-1.0); EOS # 0.1 10^3/uL (0.0-0.5); EOS % 1.3 % (0.0-3.0); HEMATOCRIT 34.1 % (36.0-47.0); LYMPH # 1.9 10^3/uL (1.5-5.0); LYMPH % 23.9 % (24.0-44.0); MEAN CORPUSCULAR HEMOGLOBIN 33.3 pg (27.0-33.0); MEAN CORPUSCULAR HGB CONC 32.3 g/dl (32.0-36.5); MEAN CORPUSCULAR VOLUME 103.3 fl (80.0-96.0); MONO # 0.6 10^3/uL (0.0-0.8); NEUTROPHILS # 5.3 10^3/uL (1.5-8.5); NEUTROPHILS % 66.8 % (36.0-66.0); PLATELET COUNT, AUTOMATED 163 10^3/uL (150-450); WHITE BLOOD COUNT 7.9 10^3/uL (4.0-10.0)
[2022-05-08 13:36] LABS: INR 1.11; PROTHROMBIN TIME 14.5 SECONDS (12.5-14.5)
[2022-05-08 13:37] LABS: PARTIAL THROMBOPLASTIN TIME 26.3 SECONDS (24.8-34.2)
[2022-05-08 13:50] LABS: ALBUMIN 3.3 G/DL (3.2-5.2); BILIRUBIN,TOTAL 0.6 MG/DL (0.3-1.2); CALCIUM LEVEL 8.9 MG/DL (8.3-10.6); CREATININE FOR GFR 1.31 MG/DL (0.55-1.30); GLOMERULAR FILTRATION RATE 41.4 (>32); TOTAL PROTEIN 6.2 G/DL (5.7-8.2)
[2022-05-08] MEDS ORDERED: NS 500 ML IV ONE (15:55)
[2022-05-08] MEDS ORDERED: ANAS1TAB2 PO (17:13)
[2022-05-08] MEDS ORDERED: LEVO88TA3 PO (17:13)
[2022-05-08] MEDS ORDERED: CLOP75TA2 PO (17:13)
[2022-05-08] MEDS ORDERED: ECOT81TA5 PO (17:17)
[2022-05-08] MEDS ORDERED: HOME MED LIST COMPLETE! XX SCH (17:20)
[2022-05-08 17:24] LABS: HEMATOCRIT 31.3 % (36.0-47.0); HEMOGLOBIN 10.2 g/dl (12.0-15.5); MEAN CORPUSCULAR HEMOGLOBIN 33.7 pg (27.0-33.0); MEAN CORPUSCULAR HGB CONC 32.6 g/dl (32.0-36.5); MEAN CORPUSCULAR VOLUME 103.3 fl (80.0-96.0); PLATELET COUNT, AUTOMATED 148 10^3/uL (150-450); RED BLOOD COUNT 3.03 10^6/uL (4.00-5.40); WHITE BLOOD COUNT 8.5 10^3/uL (4.0-10.0)
[2022-05-08] MEDS: PANTOPRAZOLE SODIUM 40 MG in D5W 50 ML IV SCH ×2 (18:01→22:51)
[2022-05-08] MEDS ORDERED: amLODIPine 5 MG TAB PO ONE (18:25)
[2022-05-08] MEDS: SUCRALFATE SUSP 1GM/10ML UD PO SCH ×2 (18:34→23:33)
[2022-05-08 20:00] VITALS: BP_SYST 144; BP_SYST 154; BP_SYST 181; BP_DIAS 67; BP_DIAS 70; BP_DIAS 77
[2022-05-08 21:01] VITALS: BP 144/67
[2022-05-08] MEDS: ASPIRIN 81MG ENTERIC TABLET PO SCH (21:29)
[2022-05-08 22:01] VITALS: BP 154/70
[2022-05-08 23:01] VITALS: BP 158/71
[2022-05-08 23:13] LABS: HEMATOCRIT 29.2 % (36.0-47.0); HEMOGLOBIN 9.6 g/dl (12.0-15.5)
[2022-05-09] VITALS (13 sets, daily range): BP systolic 73–142; BP diastolic 40–92
[2022-05-09 00:36] LABS: MAGNESIUM LEVEL 2.1 MG/DL (1.8-2.4); POTASSIUM SERUM 4.2 MMOL/L (3.5-5.1)
[2022-05-09] MEDS: PANTOPRAZOLE SODIUM 40 MG in D5W 50 ML IV SCH (04:17)
[2022-05-09] MEDS: LEVOTHYROXINE 88MCG TABLET (0.088 MG) PO SCH (05:12)
[2022-05-09 05:28] LABS: BASO # 0.1 10^3/uL (0.0-0.2); BASO % 0.7 % (0.0-1.0); EOS # 0.2 10^3/uL (0.0-0.5); EOS % 3.3 % (0.0-3.0); HEMATOCRIT 29.1 % (36.0-47.0); HEMOGLOBIN 9.5 g/dl (12.0-15.5); LYMPH # 3.1 10^3/uL (1.5-5.0); LYMPH % 43.9 % (24.0-44.0); MEAN CORPUSCULAR HEMOGLOBIN 34.1 pg (27.0-33.0); MEAN CORPUSCULAR HGB CONC 32.6 g/dl (32.0-36.5); MEAN CORPUSCULAR VOLUME 104.3 fl (80.0-96.0); MONO # 0.7 10^3/uL (0.0-0.8); NEUTROPHILS # 2.9 10^3/uL (1.5-8.5); NEUTROPHILS % 41.8 % (36.0-66.0); PLATELET COUNT, AUTOMATED 134 10^3/uL (150-450); RED BLOOD COUNT 2.79 10^6/uL (4.00-5.40)
[2022-05-09 05:59] LABS: CALCIUM LEVEL 8.1 MG/DL (8.3-10.6); CREATININE FOR GFR 1.23 MG/DL (0.55-1.30); GLOMERULAR FILTRATION RATE 44.5 (>32); MAGNESIUM LEVEL 2.1 MG/DL (1.8-2.4); POTASSIUM SERUM 4.3 MMOL/L (3.5-5.1)
[2022-05-09] MEDS: SUCRALFATE SUSP 1GM/10ML UD PO SCH ×4 (06:02→23:55)
[2022-05-09] MEDS: DOCUSATE SODIUM 100MG CAPSULE PO SCH ×2 (09:00→20:29)
[2022-05-09] MEDS ORDERED: LISINOPRIL *2.5 MG* TAB PO SCH (09:00)
[2022-05-09] MEDS: METOPROLOL TART 25 MG TABLET PO SCH ×2 (09:00→20:32)
[2022-05-09] MEDS: PANTOPRAZOLE 40MG VIAL IV SCH ×2 (09:42→20:21)
[2022-05-09] MEDS: ASPIRIN 81MG ENTERIC TABLET PO SCH ×2 (09:42→20:21)
[2022-05-09] MEDS: SIMVASTATIN 40 MG TAB PO SCH (09:43)
[2022-05-09 11:14] LABS: HEMATOCRIT 30.6 % (36.0-47.0)
[2022-05-09 17:29] LABS: HEMOGLOBIN 9.6 g/dl (12.0-15.5)
[2022-05-10] MEDS: LEVOTHYROXINE 88MCG TABLET (0.088 MG) PO SCH (05:21)
[2022-05-10] MEDS: SUCRALFATE SUSP 1GM/10ML UD PO SCH (05:21)
[2022-05-10 05:41] LABS: BASO # 0.1 10^3/uL (0.0-0.2); BASO % 0.8 % (0.0-1.0); EOS # 0.5 10^3/uL (0.0-0.5); HEMATOCRIT 27.7 % (36.0-47.0); LYMPH # 3.4 10^3/uL (1.5-5.0); LYMPH % 46.8 % (24.0-44.0); MEAN CORPUSCULAR HEMOGLOBIN 34.2 pg (27.0-33.0); MEAN CORPUSCULAR HGB CONC 32.5 g/dl (32.0-36.5); MEAN CORPUSCULAR VOLUME 105.3 fl (80.0-96.0); MONO # 0.7 10^3/uL (0.0-0.8); NEUTROPHILS # 2.6 10^3/uL (1.5-8.5); NEUTROPHILS % 35.1 % (36.0-66.0); PLATELET COUNT, AUTOMATED 121 10^3/uL (150-450); RED BLOOD COUNT 2.63 10^6/uL (4.00-5.40); WHITE BLOOD COUNT 7.3 10^3/uL (4.0-10.0)
[2022-05-10 06:04] LABS: CALCIUM LEVEL 8.6 MG/DL (8.3-10.6); CREATININE FOR GFR 1.39 MG/DL (0.55-1.30); GLOMERULAR FILTRATION RATE 38.6 (>32); POTASSIUM SERUM 4.5 MMOL/L (3.5-5.1)
[2022-05-10 06:17] VITALS: BP 140/79
[2022-05-10 06:20] VITALS: BP_SYST 123; BP_SYST 138; BP_SYST 140; BP_DIAS 75; BP_DIAS 79; BP_DIAS 85
[2022-05-10] MEDS: PANTOPRAZOLE 40MG VIAL IV SCH (08:37)
[2022-05-10 08:38] VITALS: BP 123/75
[2022-05-10] MEDS: METOPROLOL TART 25 MG TABLET PO SCH (08:38)
[2022-05-10] MEDS: ASPIRIN 81MG ENTERIC TABLET PO SCH (08:38)
[2022-05-10] MEDS: DOCUSATE SODIUM 100MG CAPSULE PO SCH (08:38)
[2022-05-10] MEDS: SIMVASTATIN 40 MG TAB PO SCH (08:38)
[2022-05-10] MEDS ORDERED: SUCR1TA PO (09:17)
[2022-05-10] MEDS ORDERED: PANT40TA29 PO (09:17)
[2022-05-10 09:36] LABS: FERRITIN 70.6 NG/ML (7.3-270.7); FOLATE 20.5 NG/ML (>5.4)
== END 2022-05-10 11:02 | disposition home or self-care (01) | DRG 813 ==
LOC: M ED 11:56 → UNDOADMIN 16:36 → M ICU 16:36 → M MSPAV 05-09 11:23
PROVIDERS: ADMIT Internal Medicine Nephrology; ATTEND Internal Medicine Nephrology
DX: D68.32 Hemorrhagic disorder due to extrinsic circulating anticoagulants (principal); K92.2 Gastrointestinal hemorrhage, unspecified; D62 Acute posthemorrhagic anemia; K92.0 Hematemesis; I10 Essential (primary) hypertension; I95.1 Orthostatic hypotension; I25.10 Atherosclerotic heart disease of native coronary artery without angina pectoris; Z95.5 Presence of coronary angioplasty implant and graft; K21.9 Gastro-esophageal reflux disease without esophagitis; E03.9 Hypothyroidism, unspecified; M19.90 Unspecified osteoarthritis, unspecified site; E78.5 Hyperlipidemia, unspecified; Z92.3 Personal history of irradiation; Z85.038 Personal history of other malignant neoplasm of large intestine; Z85.3 Personal history of malignant neoplasm of breast; Z90.49 Acquired absence of other specified parts of digestive tract; Z86.73 Personal history of transient ischemic attack (TIA), and cerebral infarction without residual deficits; Z79.82 Long term (current) use of aspirin; Z79.890 Hormone replacement therapy; Z79.899 Other long term (current) drug therapy; Z20.822 Contact with and (suspected) exposure to COVID-19

== ENCOUNTER 2022-07-20 06:35 | Day surgery (SDC) | payer MEDICARE ==
[~2022-07-20] VITALS: Ht 162.6 cm; Wt 85.5 kg
[~2022-07-20 06:35] MED LIST changes: +NS 1,000 ML IV ONE; +SUCR1TA PO
[2022-07-20] MEDS ORDERED: propofoL 200 MG/20 ML VIAL As Ordered ONE (07:09)
[2022-07-20] MEDS ORDERED: LIDOCAINE 2% 100MG/5ML SDV (FOR ANES.) As Ordered ONE (07:09)
[2022-07-20] MEDS ORDERED: METOPROLOL 5 MG/5 ML VIAL As Ordered ONE (07:43)
[2022-07-20 08:35] VITALS: BP 136/63
== END 2022-07-20 08:42 | disposition home or self-care (01) ==
LOC: M OPP 06:35
PROVIDERS: ATTEND Surgery
DX: Z12.11 Encounter for screening for malignant neoplasm of colon (principal); Z85.068 Personal history of other malignant neoplasm of small intestine; Z86.010 Personal history of colon polyps; K31.89 Other diseases of stomach and duodenum; K22.70 Barrett's esophagus without dysplasia; K44.9 Diaphragmatic hernia without obstruction or gangrene; K92.0 Hematemesis; Z79.02 Long term (current) use of antithrombotics/antiplatelets; Z79.82 Long term (current) use of aspirin; Z79.811 Long term (current) use of aromatase inhibitors; Z79.899 Other long term (current) drug therapy
CPT/HCPCS: 43239; 88305; G0105

== ENCOUNTER → 2022-08-09 | Outpatient (CLI) | payer MEDICARE ==
[~2022-08-09] MED LIST changes: -NS 1,000 ML IV ONE
== END ==
LOC: M WHC 10:47
PROVIDERS: ATTEND Nurse Practitioner Women's Health
DX: C50.911 Malignant neoplasm of unspecified site of right female breast (principal)
CPT/HCPCS: 77066; G0279

== ENCOUNTER → 2022-08-25 | Outpatient (CLI) | payer MEDICARE ==
[~2022-08-25] MED LIST changes: +E-Z-GAS II EFFERVESCENT PACKET (SODIUM BICARB./CITRIC ACID/SIMETHICONE) As Ordered ONE; +E-Z-HD 98% w/w 340GM SUSP BTL As Ordered ONE; +E-Z-PAQUE 96% w/w SUSP 176GM BTL As Ordered ONE
== END ==
LOC: M RAD 09:20
PROVIDERS: ATTEND Physician Assistant
DX: K21.9 Gastro-esophageal reflux disease without esophagitis (principal); R10.9 Unspecified abdominal pain

== ENCOUNTER → 2022-09-11 | Outpatient (CLI) | payer MEDICARE ==
[~2022-09-11] MED LIST changes: -E-Z-GAS II EFFERVESCENT PACKET (SODIUM BICARB./CITRIC ACID/SIMETHICONE) As Ordered ONE; -E-Z-HD 98% w/w 340GM SUSP BTL As Ordered ONE; -E-Z-PAQUE 96% w/w SUSP 176GM BTL As Ordered ONE
== END ==
LOC: M RAD 17:40
PROVIDERS: ATTEND Family Medicine
DX: R04.2 Hemoptysis (principal)

== ENCOUNTER → 2022-10-24 | Outpatient (CLI) | payer MEDICARE ==
[~2022-10-24] MED LIST changes: +FAMO40TA3 PO
== END ==
LOC: M RAD 12:05
PROVIDERS: ATTEND Surgery
DX: K21.9 Gastro-esophageal reflux disease without esophagitis (principal); K44.9 Diaphragmatic hernia without obstruction or gangrene
CPT/HCPCS: 78264; A9541

== ENCOUNTER → 2022-11-02 | Outpatient (CLI) | payer MEDICARE | LOC: M WUC 14:44 | PROVIDERS: ATTEND Family Medicine | DX: M25.59 Pain in other specified joint (principal) ==

== ENCOUNTER → 2022-11-29 | Outpatient (CLI) | payer MEDICARE ==
[~2022-11-29] MED LIST changes: +ISOVUE-370 76% 100ML VIAL As Ordered ONE
== END ==
LOC: M RAD 08:10
PROVIDERS: ATTEND Family Medicine
DX: R91.1 Solitary pulmonary nodule (principal); I51.7 Cardiomegaly; I70.0 Atherosclerosis of aorta; I25.10 Atherosclerotic heart disease of native coronary artery without angina pectoris; Z95.1 Presence of aortocoronary bypass graft; Z90.49 Acquired absence of other specified parts of digestive tract; K44.9 Diaphragmatic hernia without obstruction or gangrene; J47.9 Bronchiectasis, uncomplicated
CPT/HCPCS: 71260; Q9967

== ENCOUNTER → 2023-04-13 | Outpatient (CLI) | payer MEDICARE ==
[~2023-04-13] MED LIST changes: +CALCTAB89 PO; +ESOM40CA35 PO; -ISOVUE-370 76% 100ML VIAL As Ordered ONE; +METO10TA3 PO
== END ==
LOC: M WHC 12:30
PROVIDERS: ATTEND Internal Medicine Medical Oncology
DX: Z13.820 Encounter for screening for osteoporosis (principal); C50.919 Malignant neoplasm of unspecified site of unspecified female breast; M85.88 Other specified disorders of bone density and structure, other site

== ENCOUNTER → 2023-04-28 | Outpatient (CLI) | payer MEDICARE | LOC: M RAD 08:45 | PROVIDERS: ATTEND Student in an Organized Health Care Education/Training Program | DX: M54.16 Radiculopathy, lumbar region (principal); M54.31 Sciatica, right side ==

== ENCOUNTER → 2023-08-16 | Outpatient (CLI) | payer MEDICARE | LOC: M WHC 10:28 | PROVIDERS: ATTEND Nurse Practitioner Women's Health | DX: C50.911 Malignant neoplasm of unspecified site of right female breast (principal); Z08 Encounter for follow-up examination after completed treatment for malignant neoplasm | CPT/HCPCS: 77066; G0279 ==

== ENCOUNTER → 2023-09-11 | Outpatient (REF) | payer MEDICARE ==
[2023-09-11 16:46] LABS: INR 1.08; PARTIAL THROMBOPLASTIN TIME 29.1 SECONDS (24.8-34.2); PROTHROMBIN TIME 13.6 SECONDS (12.5-14.5)
== END ==
LOC: M LAB REF 16:03
PROVIDERS: ATTEND Family Medicine
DX: Z01.818 Encounter for other preprocedural examination (principal); Z79.01 Long term (current) use of anticoagulants

== ENCOUNTER → 2023-09-27 | Outpatient (REF) | payer MEDICARE | LOC: M LABWUC 16:32 | PROVIDERS: ATTEND Physician Assistant | DX: I48.0 Paroxysmal atrial fibrillation (principal) ==

== ENCOUNTER → 2023-10-09 | Outpatient (CLI) | payer MEDICARE | LOC: M PLAIMG 09:30 | PROVIDERS: ATTEND Physician Assistant | DX: I48.0 Paroxysmal atrial fibrillation (principal); I27.20 Pulmonary hypertension, unspecified; I08.3 Combined rheumatic disorders of mitral, aortic and tricuspid valves ==

== ENCOUNTER → 2023-10-17 | Outpatient (CLI) | payer MEDICARE ==
[2023-10-17 13:27] LABS: BASO # 0.1 10^3/uL (0.0-0.2); EOS # 0.4 10^3/uL (0.0-0.5); EOS % 6.5 % (0.0-3.0); HEMATOCRIT 37.3 % (36.0-47.0); HEMOGLOBIN 12.2 g/dl (12.0-15.5); LYMPH # 2.2 10^3/uL (1.5-5.0); LYMPH % 37.2 % (24.0-44.0); MEAN CORPUSCULAR HEMOGLOBIN 35.7 pg (27.0-33.0); MEAN CORPUSCULAR HGB CONC 32.7 g/dl (32.0-36.5); MEAN CORPUSCULAR VOLUME 109.1 fl (80.0-96.0); MONO # 0.5 10^3/uL (0.0-0.8); MONO % 9.2 % (2.0-8.0); NEUTROPHILS # 2.7 10^3/uL (1.5-8.5); NEUTROPHILS % 45.9 % (36.0-66.0); PLATELET COUNT, AUTOMATED 190 10^3/uL (150-450); RED BLOOD COUNT 3.42 10^6/uL (4.00-5.40); WHITE BLOOD COUNT 5.9 10^3/uL (4.0-10.0)
[2023-10-17 13:54] LABS: ALBUMIN 3.7 G/DL (3.2-5.2); BILIRUBIN,TOTAL 0.8 MG/DL (0.3-1.2); CALCIUM LEVEL 8.9 MG/DL (8.3-10.6); CREATININE FOR GFR 1.34 MG/DL (0.55-1.30); GLOMERULAR FILTRATION RATE 40.1 (>32); MAGNESIUM LEVEL 2.1 MG/DL (1.8-2.4); POTASSIUM SERUM 4.6 MMOL/L (3.5-5.1); TOTAL PROTEIN 6.7 G/DL (5.7-8.2)
[2023-10-17 14:12] LABS: CA15-3 ANTIGEN 7.7 U/ML (<32.4)
== END ==
LOC: M WUC 10:40
PROVIDERS: ATTEND Specialist
DX: I48.0 Paroxysmal atrial fibrillation (principal); C50.911 Malignant neoplasm of unspecified site of right female breast

== ENCOUNTER → 2023-10-29 | Outpatient (CLI) | payer MEDICARE ==
[2023-10-29 17:11] LABS: HEMATOCRIT 39.5 % (36.0-47.0); HEMOGLOBIN 12.8 g/dl (12.0-15.5); MEAN CORPUSCULAR HEMOGLOBIN 35.5 pg (27.0-33.0); MEAN CORPUSCULAR HGB CONC 32.4 g/dl (32.0-36.5); MEAN CORPUSCULAR VOLUME 109.4 fl (80.0-96.0); PLATELET COUNT, AUTOMATED 188 10^3/uL (150-450); RED BLOOD COUNT 3.61 10^6/uL (4.00-5.40); WHITE BLOOD COUNT 6.5 10^3/uL (4.0-10.0)
== END ==
LOC: M WUC 11:43
PROVIDERS: ATTEND Physician Assistant
DX: I48.0 Paroxysmal atrial fibrillation (principal)

== ENCOUNTER → 2023-12-27 | Outpatient (REF) | payer MEDICARE ==
[2023-12-28 17:07] LABS: FOLATE > 24.0 NG/ML (>5.4); VITAMIN B12 LEVEL 573 PG/ML (211-911)
== END ==
LOC: M LAB REF 16:31
PROVIDERS: ATTEND Family Medicine
DX: D64.9 Anemia, unspecified (principal)

== ENCOUNTER → 2024-04-01 | Outpatient (CLI) | payer MEDICARE ==
[~2024-04-01] MED LIST changes: +DIGO0.123; +ELIQ5TAB
[2024-04-01 18:26] LABS: BASO # 0.1 10^3/uL (0.0-0.2); BASO % 0.8 % (0.0-1.0); EOS # 0.3 10^3/uL (0.0-0.5); EOS % 4.1 % (0.0-3.0); HEMATOCRIT 38.2 % (36.0-47.0); HEMOGLOBIN 12.4 g/dl (12.0-15.5); LYMPH # 2.1 10^3/uL (1.5-5.0); LYMPH % 32.3 % (24.0-44.0); MEAN CORPUSCULAR HEMOGLOBIN 34.8 pg (27.0-33.0); MEAN CORPUSCULAR HGB CONC 32.5 g/dl (32.0-36.5); MEAN CORPUSCULAR VOLUME 107.3 fl (80.0-96.0); MONO # 0.8 10^3/uL (0.0-0.8); MONO % 11.9 % (2.0-8.0); NEUTROPHILS # 3.4 10^3/uL (1.5-8.5); NEUTROPHILS % 50.7 % (36.0-66.0); PLATELET COUNT, AUTOMATED 182 10^3/uL (150-450); RED BLOOD COUNT 3.56 10^6/uL (4.00-5.40); WHITE BLOOD COUNT 6.6 10^3/uL (4.0-10.0)
[2024-04-01 18:55] LABS: ALBUMIN 3.6 G/DL (3.2-5.2); BILIRUBIN,TOTAL 0.5 MG/DL (0.3-1.2); CALCIUM LEVEL 9.5 MG/DL (8.3-10.6); CREATININE FOR GFR 1.25 MG/DL (0.55-1.30); GLOMERULAR FILTRATION RATE 43.5 (>32); MAGNESIUM LEVEL 2.2 MG/DL (1.8-2.4); POTASSIUM SERUM 5.1 MMOL/L (3.5-5.1); TOTAL PROTEIN 7.1 G/DL (5.7-8.2)
[2024-04-01 19:12] LABS: CA15-3 ANTIGEN 6.1 U/ML (<32.4)
== END ==
LOC: M WUC 13:13
PROVIDERS: ATTEND Specialist
DX: C50.311 Malignant neoplasm of lower-inner quadrant of right female breast (principal)

== ENCOUNTER → 2024-05-29 | Outpatient (CLI) | payer MEDICARE | LOC: M WUC 14:14 | PROVIDERS: ATTEND Family Medicine | DX: M25.551 Pain in right hip (principal); Z96.641 Presence of right artificial hip joint ==

== ENCOUNTER → 2024-09-30 | Outpatient (CLI) | payer MEDICARE ==
[~2024-09-30] MED LIST changes: +CHOL25CA2 PO; -VITA100054 PO
[2024-09-30 19:17] LABS: ALT/SGPT 19.0 U/L (7.0-40); AST/SGOT 24.0 U/L (<34); BASO # 0.1 10^3/uL (0.0-0.2); BASO % 1.0 % (0.0-1.0); CALCIUM LEVEL 10.0 MG/DL (8.3-10.6); CARBON DIOXIDE LEVEL 25.0 MMOL/L (20-31); CHLORIDE LEVEL 106.0 MMOL/L (98-107); CREATININE FOR GFR 1.56 MG/DL (0.55-1.30); EOS # 0.4 10^3/uL (0.0-0.5); EOS % 6.0 % (0.0-3.0); GLOMERULAR FILTRATION RATE 32.4 (>32); LYMPH # 1.8 10^3/uL (1.5-5.0); LYMPH % 24.9 % (24.0-44.0); MONO # 0.7 10^3/uL (0.0-0.8); MONO % 9.1 % (2.0-8.0); NEUTROPHILS # 4.2 10^3/uL (1.5-8.5); NEUTROPHILS % 58.9 % (36.0-66.0); PLATELET COUNT, AUTOMATED 211 10^3/uL (150-450); POTASSIUM SERUM 5.5 MMOL/L (3.5-5.1); SODIUM LEVEL 144.0 MMOL/L (136-145)
== END ==
LOC: M WUC 11:32
PROVIDERS: ATTEND Specialist
DX: C50.311 Malignant neoplasm of lower-inner quadrant of right female breast (principal)

== ENCOUNTER → 2024-11-18 | Outpatient (CLI) | payer MEDICARE ==
[~2024-11-18] MED LIST changes: +CLOP75TA2; +METO37.5 PO
== END ==
LOC: M WUC 10:11
PROVIDERS: ATTEND Physician Assistant
DX: H92.02 Otalgia, left ear (principal); M26.622 Arthralgia of left temporomandibular joint

== ENCOUNTER → 2024-12-17 | Outpatient (REF) | payer MEDICARE | LOC: M LAB REF 11:53 | PROVIDERS: ATTEND Family Medicine | DX: D62 Acute posthemorrhagic anemia (principal) ==

== ENCOUNTER → 2025-01-12 | Outpatient (CLI) | payer MEDICARE ==
[~2025-01-12] MED LIST changes: +DICL20GE TP; +LIDO4CRE12 TOP; +MEDR4PAK PO
== END ==
LOC: M WUC 13:42
PROVIDERS: ATTEND Student in an Organized Health Care Education/Training Program
DX: M25.522 Pain in left elbow (principal)

== ENCOUNTER 2025-01-15 11:36 | Emergency (ER) | payer MEDICARE ==
[~2025-01-15] VITALS: Ht 165.1 cm; Wt 76.2 kg
[~2025-01-15 11:36] MED LIST changes: -DICL20GE TP; -LIDO4CRE12 TOP; -MEDR4PAK PO
[2025-01-15] MEDS ORDERED: DICL20GE TP (15:22)
[2025-01-15] MEDS ORDERED: MEDR4PAK PO (15:22)
[2025-01-15] MEDS ORDERED: LIDO4CRE12 TOP (15:22)
[2025-01-15 15:30] VITALS: BP 145/73; TEMP 96.8; O2SAT 98
== END 2025-01-15 15:34 | disposition home or self-care (01) ==
LOC: M ED 11:36
DX: M25.522 Pain in left elbow (principal); I25.10 Atherosclerotic heart disease of native coronary artery without angina pectoris; I25.2 Old myocardial infarction; I10 Essential (primary) hypertension; Z85.3 Personal history of malignant neoplasm of breast; Z95.1 Presence of aortocoronary bypass graft; Z90.49 Acquired absence of other specified parts of digestive tract; Z79.82 Long term (current) use of aspirin; Z79.899 Other long term (current) drug therapy